=== PATIENT | female | born 1940 | race Caucasian/White ===

== ENCOUNTER → 2017-01-20 | Outpatient (CLI) | payer BC ==
[~2017-01-20] MED LIST: ASPI-391 PO; ASPI81TA28 PO; CALCTAB5 PO; CHOL100010 PO; LEVO50TA6 PO; METO25TA3 PO; [UNRECOGNIZED DRUG - CODE] PO
[2017-01-20 09:36] LABS: MEAN CELL VOLUME 90.1 fL (80-100); MEAN CORPUSCULAR HEMOGLOBIN 31.2 pg (25-34); MEAN CORPUSCULAR HGB CONC 34.7 g/dl (32-36); MEAN PLATELET VOLUME 9.9 fL (7.4-10.4); PLATELET COUNT 206 K/uL (130-400); RED BLOOD COUNT 4.77 M/uL (4.2-5.4); WHITE BLOOD COUNT 3.88 K/uL (4.8-10.8)
[2017-01-20 09:56] LABS: ALT/SGPT 22 U/L (12-78); AST/SGOT 20 U/L (15-37); BLOOD UREA NITROGEN 13 mg/dl (7-18); BUN/CREATININE RATIO 16.2 (10-20); CARBON DIOXIDE 31 mmol/L (21-32); CHLORIDE 98 mmol/L (98-107); CREATININE 0.82 mg/dl (0.60-1.20); GLUCOSE 95 mg/dl (70-99); MAGNESIUM 2.1 mg/dl (1.8-2.4); POTASSIUM 4.1 mmol/L (3.5-5.1); SODIUM 133 mmol/L (136-145)
[2017-01-20 10:08] LABS: ALB/GLOB RATIO 1.1 (0.9-2); ALKALINE PHOSPHATASE 70 U/L (45-117)
[2017-01-20 10:16] LABS: CALCIUM 9.3 mg/dl (8.5-10.1)
== END | disposition home or self-care (01) ==
LOC: C.LABFOXMH 09:18
PROVIDERS: ATTEND Nurse Practitioner Family
DX: I48.91 Unspecified atrial fibrillation (principal); Z51.81 Encounter for therapeutic drug level monitoring; E83.42 Hypomagnesemia; E03.9 Hypothyroidism, unspecified

== ENCOUNTER → 2017-04-05 | Outpatient (CLI) | payer BC ==
--- NOTE | 2017-04-06 13:53 | MAMMOGRAPHY REPORT ---
BILATERAL DIGITAL SCREENING MAMMOGRAM TOMOSYNTHESIS WITH CAD: 04/05/2017 CLINICAL HISTORY: Routine screening. Patient has no complaints. TECHNIQUE: Breast tomosynthesis in addition to standard 2D mammography was performed. Current study was also evaluated with a Computer Aided Detection (CAD) system. COMPARISON: Comparison is made to exams dated: 12/25/2015 mammogram, 12/18/2015 mammogram, 12/16/2014 ma mmogram, 04/15/2014 mammogram, 10/16/2013 mammogram, and 10/12/2013 mammogram - [facility]ter. BREAST COMPOSITION: There are scattered areas of fibroglandular density in both breasts. FINDINGS: There is a stable 9 mm lobular mass with associated biopsy marker in the 12:00 anterior rig ht breast, that appears similar in size dating back to at least 04/10/2010, therefore likely benign. There are scattered benign-appearing calcifications bilaterally. No suspicious spiculated or irregu lar mass, architectural distortion or cluster of suspicious microcalcifications is seen. IMPRESSION: ACR BI-RADS CATEGORY 1: NEGATIVE There is no mammographic evidence of malignancy. A 1 year screening mammogram is recommended. The pa tient will receive written notification of the results. Approximately 10% of breast cancers are not detected with mammography. A negative mammographic report should not delay biopsy if a clinically suggestive mass is present. Morena Chavis M.D. ay/:04/05/2017 16:02:40 Linux Systems Engineer: Ann-Marie DANIEL(Philippe)(Fatimah)([place]), [facility] letter sent: Normal 1/2 BI-RADS Code: ACR BI-RADS Category 1: Negative
== END | disposition home or self-care (01) ==
LOC: C.MAMM 12:56
PROVIDERS: ATTEND Obstetrics & Gynecology
DX: Z12.31 Encounter for screening mammogram for malignant neoplasm of breast (principal)

== ENCOUNTER → 2018-02-01 | Outpatient (CLI) | payer BC ==
[~2018-02-01] MED LIST changes: +METO25TA4 PO
[2018-02-01 09:10] LABS: ALBUMIN 3.2 gm/dl (3.4-5.0); ALT/SGPT 19 U/L (12-78); AST/SGOT 21 U/L (15-37); BLOOD UREA NITROGEN 11 mg/dl (7-18); CALCIUM 8.2 mg/dl (8.5-10.1); CARBON DIOXIDE 29 mmol/L (21-32); CREATININE 0.82 mg/dl (0.60-1.20); GLUCOSE 89 mg/dl (70-99); POTASSIUM 4.2 mmol/L (3.5-5.1); SODIUM 134 mmol/L (136-145)
[2018-02-01 09:20] LABS: ALKALINE PHOSPHATASE 44 U/L (45-117); TOTAL PROTEIN 6.5 gm/dl (6.4-8.2)
[2018-02-01 12:01] LABS: HEMATOCRIT 37.9 % (37-47); HEMOGLOBIN 13.2 g/dL (12.0-16.0); MEAN CELL VOLUME 87.5 fL (80-100); MEAN CORPUSCULAR HEMOGLOBIN 30.5 pg (25-34); MEAN CORPUSCULAR HGB CONC 34.8 g/dl (32-36); MEAN PLATELET VOLUME 9.3 fL (7.4-10.4); PLATELET COUNT 156 K/uL (130-400); RED CELL DISTRIBUTION WIDTH SD 41.8 fL (36.4-46.3); WHITE BLOOD COUNT 4.55 K/uL (4.8-10.8)
== END | disposition home or self-care (01) ==
LOC: C.LABFOXMH 08:25
PROVIDERS: ATTEND Nurse Practitioner Family
DX: E03.9 Hypothyroidism, unspecified (principal); I48.91 Unspecified atrial fibrillation

== ENCOUNTER 2021-05-03 18:42 | Inpatient (IN) ==
--- NOTE | 2021-05-03 19:39 | Emergency Department Note ---
History of Present Illness General Chief complaint: Fall Stated complaint: FELL AND HURT RIGHT HIP/UPPER THIGH Time Seen by Provider: 05/03/21 19:14 History of Present Illness Provider complaint: Fall right hip pain Onset (ago): hour(s) 3 Location: lower extremity and right Radiation: non-radiation Severity: moderate Pain Consistency: + constant Maximum Pain Intensity: 8 Current Pain Intensity: 8 Quality: + aching Relieved By: + immobilization Exacerbated By: + movement Associated symptoms: no chest pain, no cough, no fever/chills, no headaches, no nausea/vomiting, no shortness of breath or no weakness 81-year-old female presents emergency department for right hip pain. Patient states that approximately 4:30 PM she tripped and fell and landed on her right hip. Patient denies hitting her head. Patient is on Xarelto. She states it hurts to walk and was having difficulty standing. Home Medications Medication Instructions Recorded Confirmed Type levothyroxine 50 mcg tablet 50 mcg PO DAILY 04/02/19 05/03/21 History magnesium oxide 400 mg PO DAILY cap 04/02/19 05/03/21 History potassium chloride 10 mEq 10 meq PO DAILY 04/02/19 05/03/21 History tablet,extended release escitalopram oxalate 5 mg tablet 7.5 mg PO DAILY 04/17/19 05/03/21 History (Lexapro) rivaroxaban 20 mg tablet (Xarelto) 20 mg PO DAILY 04/17/19 05/03/21 History metoprolol succinate 25 mg 25 mg PO DAILY tab 05/12/20 05/03/21 History tablet,extended release 24 hr calcium carbonate 500 mg calcium 500 mg PO DAILY 05/03/21 05/03/21 History (1,250 mg) tablet (Calcium 500) psyllium 1 packet PO DAILY 05/03/21 05/03/21 History Allergies Allergy/AdvReac Type Severity Reaction Status Date / Time codeine AdvReac Severe NAUSEA Verified 05/03/21 19:18 Past Med/Surg History Medical History Abnormal mammogram Anticoagulant long-term use Diverticulitis Dysphagia PAC (premature atrial contraction) Paroxysmal atrial fibrillation Paroxysmal atrial tachycardia Senile atrophic vaginitis Vulvar ulceration Surgical History H/O bilateral cataract extraction H/O colonoscopy H/O hemorrhoidectomy H/O right hemicolectomy Hx of appendectomy Hx of bilateral salpingo-oophorectomy S/P partial colectomy S/P tonsillectomy Family History Mother Colon cancer Cardiac disorder Father Cardiac disorder Sister Ovarian cancer Denies family history of Breast cancer Social History Smoking Status: Never smoker Hx Alcohol Use: No Hx Substance Use: No marital status: current occupational status: retired Feels Safe at Home: Yes Childhood Exposure to Second-Hand Smoke: No Review of Systems A total of 10 systems reviewed and were otherwise negative Physical Exam Vital Signs Vital Signs - 24 hr 05/03/21 18:55 05/03/21 21:00 05/03/21 21:30 Temperature 36.4 C L Temperature Source Oral Pulse Rate 72 70 75 Respiratory Rate 18 18 20 Respiratory Effort / Characteristics Non-Labored Respiratory Depth Normal Blood Pressure 148/93 H 155/88 H 148/84 H Blood Pressure Mean 111 110 105 Blood Pressure Position Sitting Pulse Oximetry 94 97 97 Oxygen Delivery Method Room Air Sepsis Recent Fever Within 48 Hours No Sepsis New/Unexplained Change in Mental Status N/A Sepsis Action Taken by Nursing No Action Required 05/03/21 22:00 05/03/21 22:30 Temperature Temperature Source Pulse Rate 73 71 Respiratory Rate 20 22 Respiratory Effort / Characteristics Respiratory Depth Blood Pressure 149/84 H 120/102 H Blood Pressure Mean 105 108 Blood Pressure Position Pulse Oximetry 96 96 Oxygen Delivery Method Sepsis Recent Fever Within 48 Hours Sepsis New/Unexplained Change in Mental Status Sepsis Action Taken by Nursing Physical Exam GENERAL: She is oriented to person, place, and time. She appears well-developed and well-nourished. She does not appear distressed. HENT: Exam performed. -Head: Normocephalic and atraumatic. -Right Ear: External ear normal. No mastoid tenderness. -Left Ear: External ear normal. No mastoid tenderness. -Mouth/Throat: The oropharynx is clear and moist. No trismus in the jaw. No dental abscesses or uvula swelling. No oropharyngeal exudate or tonsillar abscesses. EYES: Conjunctivae and EOM are normal. Pupils are equal, round, and reactive to light. Right eye exhibits no discharge. Left eye exhibits no discharge. No scleral icterus. NECK: Normal range of motion. Neck supple. No JVD present. No spinous process tenderness present. No carotid bruit present. No rigidity. No tracheal deviation and normal range of motion present. No Brudzinski's sign and no Kernig's sign noted. CV: Normal rate, regular rhythm, normal heart sounds and intact distal pulses. There is no peripheral edema. Palpable radial pulses bue. PULM/CHEST: Effort normal and breath sounds normal. No respiratory distress. No stridor. She has no wheezes. She has no rales. -Chest Wall: She exhibits no tenderness. ABD: The abdomen is soft. Bowel sounds are normal. She has no distension. No mass is present. There is no tenderness. There is no rebound, no guarding, no Noriega's sign and no tenderness at McBurney's point. Rovsig negative MUSC/SKEL: Pelvis stable. Pain on palpation of the right hip. Palpable DP and PT pulses bilateral lower extremities. LYMPH: No cervical adenopathy. NEURO: She is alert and oriented to person, place, and time. She has normal strength. No cranial nerve deficit or sensory deficit. Coordination and gait normal. GCS eye subscore is 4. GCS verbal subscore is 5. GCS motor subscore is 6. Cerebellar tests wnl. SKIN: Skin is warm and dry. She is not diaphoretic. PSYCH: She has a normal mood and affect. Behavior is normal. Judgment and thought content normal. Course Course 191: The patient was evaluated in room A3. A complete history and physical exam was performed Cardiac monitoring: An order was placed for continuous cardiac monitoring. The monitor shows a rate of 70 with sinus rhythm 2015: Vital signs stable. X-ray does show hip fracture. Patient will be admitted to the medicine service Dr. Nuzhat Koch. Patient is requesting Dr. Dioni Koch orthopedics to be her orthopedist. Patient is adamant that she not hit her head and is not having headache. Administered Medications Discontinued Medications Acetaminophen (Ofirmev) 1,000 mg in 100 mls @ 400 mls/hr IV NOW STA Stop: 05/03/21 22:17 Last Admin: 05/03/21 22:16 Dose: 400 mls/hr Documented by: [id number] Medical Decision Making Laboratory Data Result diagrams: 05/03/21 20:16 05/03/21 20:16 Lab Results 05/03/21 05/03/21 05/03/21 Range/Units 20:15 20:15 20:15 WBC (4.8-10.8) K/uL RBC (4.2-5.4) M/uL Hgb (12.0-16.0) g/dL Hct (37-47) % MCV (80-100) fL MCH (25-34) pg MCHC (32-36) g/dL RDW Std Deviation (36.4-46.3) fL RDW Coeff of Bettye (11.5-14.5) % Plt Count (130-400) K/uL MPV (7.4-10.4) fL Immature Gran % (Auto) % Neut % (Auto) % Lymph % (Auto) % Powell % (Auto) % Eos % (Auto) % Baso % (Auto) % Neut # (Auto) (1.4-6.5) K/uL Lymph # (Auto) (1.2-3.4) K/uL Powell # (Auto) (0.11-0.59) K/uL Eos # (Auto) (0-0.5) K/uL Baso # (Auto) (0-0.2) K/uL Immature Gran # (Auto) (0.00-0.02) K/uL PT (9.0-12.0) Seconds INR (0.9-1.1) APTT (21.0-31.0) Seconds PTT Ratio Sodium (136-145) mmol/L Potassium (3.5-5.1) mmol/L Chloride (98-107) mmol/L Carbon Dioxide (21-32) mmol/L Anion Gap (3-11) BUN (7-18) mg/dl Creatinine (0.6-1.2) mg/dl Est Cr Clr Drug Dosing Est GFR ( Amer) ml/min Est GFR (Non-Af Amer) ml/min BUN/Creatinine Ratio (10-20) Glucose (70-99) mg/dl Calcium (8.5-10.1) mg/dl Total Bilirubin (0.2-1) mg/dl AST (15-37) U/L ALT (12-78) U/L Alkaline Phosphatase (45-117) U/L Total Protein (6.4-8.2) gm/dl Albumin (3.4-5.0) gm/dl Globulin (2.5-4.0) gm/dl Albumin/Globulin Ratio (0.9-2) Urine Color Yellow Urine Appearance Clear (Clear) Urine pH 6.5 (4.5-7.5) Ur Specific [place] 1.013 (1.000-1.030) Urine Protein Negative (Negative) Urine Glucose (UA) Negative (Negative) Urine Ketones Negative (Negative) Urine Blood Negative (Negative) Urine Nitrite Negative (Negative) Urine Bilirubin Negative (Negative) Urine Urobilinogen Negative (Negative) Ur Leukocyte Esterase Negative (Negative) COVID-19 Eval Order Covid19 at [facility] SARS-CoV-2 (PCR) NEGATIVE (Negative) Blood Type Antibody Screen 05/03/21 05/03/21 05/03/21 Range/Units 20:16 20:16 20:16 WBC 5.27 (4.8-10.8) K/uL RBC 4.40 (4.2-5.4) M/uL Hgb 13.6 (12.0-16.0) g/dL Hct 38.7 (37-47) % MCV 88.0 (80-100) fL MCH 30.9 (25-34) pg MCHC 35.1 (32-36) g/dL RDW Std Deviation 41.7 (36.4-46.3) fL RDW Coeff of Bettye 12.9 (11.5-14.5) % Plt Count 176 (130-400) K/uL MPV 9.7 (7.4-10.4) fL Immature Gran % (Auto) 0.2 % Neut % (Auto) 66.7 % Lymph % (Auto) 23.1 % Powell % (Auto) 8.9 % Eos % (Auto) 0.9 % Baso % (Auto) 0.2 % Neut # (Auto) 3.51 (1.4-6.5) K/uL Lymph # (Auto) 1.22 (1.2-3.4) K/uL Powell # (Auto) 0.47 (0.11-0.59) K/uL Eos # (Auto) 0.05 (0-0.5) K/uL Baso # (Auto) 0.01 (0-0.2) K/uL Immature Gran # (Auto) 0.01 (0.00-0.02) K/uL PT 12.7 H (9.0-12.0) Seconds INR 1.3 H (0.9-1.1) APTT 35.0 H (21.0-31.0) Seconds PTT Ratio 1.3 Sodium (136-145) mmol/L Potassium (3.5-5.1) mmol/L Chloride (98-107) mmol/L Carbon Dioxide (21-32) mmol/L Anion Gap (3-11) BUN (7-18) mg/dl Creatinine (0.6-1.2) mg/dl Est Cr Clr Drug Dosing Est GFR ( Amer) ml/min Est GFR (Non-Af Amer) ml/min BUN/Creatinine Ratio (10-20) Glucose (70-99) mg/dl Calcium (8.5-10.1) mg/dl Total Bilirubin (0.2-1) mg/dl AST (15-37) U/L ALT (12-78) U/L Alkaline Phosphatase (45-117) U/L Total Protein (6.4-8.2) gm/dl Albumin (3.4-5.0) gm/dl Globulin (2.5-4.0) gm/dl Albumin/Globulin Ratio (0.9-2) Urine Color Urine Appearance (Clear) Urine pH (4.5-7.5) Ur Specific [place] (1.000-1.030) Urine Protein (Negative) Urine Glucose (UA) (Negative) Urine Ketones (Negative) Urine Blood (Negative) Urine Nitrite (Negative) Urine Bilirubin (Negative) Urine Urobilinogen (Negative) Ur Leukocyte Esterase (Negative) COVID-19 Eval Order SARS-CoV-2 (PCR) (Negative) Blood Type AB Positive Antibody Screen NEGATIVE 05/03/21 Range/Units 20:16 WBC (4.8-10.8) K/uL RBC (4.2-5.4) M/uL Hgb (12.0-16.0) g/dL Hct (37-47) % MCV (80-100) fL MCH (25-34) pg MCHC (32-36) g/dL RDW Std Deviation (36.4-46.3) fL RDW Coeff of Bettye (11.5-14.5) % Plt Count (130-400) K/uL MPV (7.4-10.4) fL Immature Gran % (Auto) % Neut % (Auto) % Lymph % (Auto) % Powell % (Auto) % Eos % (Auto) % Baso % (Auto) % Neut # (Auto) (1.4-6.5) K/uL Lymph # (Auto) (1.2-3.4) K/uL Powell # (Auto) (0.11-0.59) K/uL Eos # (Auto) (0-0.5) K/uL Baso # (Auto) (0-0.2) K/uL Immature Gran # (Auto) (0.00-0.02) K/uL PT (9.0-12.0) Seconds INR (0.9-1.1) APTT (21.0-31.0) Seconds PTT Ratio Sodium 127 L (136-145) mmol/L Potassium 4.3 (3.5-5.1) mmol/L Chloride 95 L (98-107) mmol/L Carbon Dioxide 24 (21-32) mmol/L Anion Gap 7.0 (3-11) BUN 17 (7-18) mg/dl Creatinine 0.75 (0.6-1.2) mg/dl Est Cr Clr Drug Dosing Not Reportable Est GFR ( Amer) 87.9 ml/min Est GFR (Non-Af Amer) 75.8 ml/min BUN/Creatinine Ratio 22.7 H (10-20) Glucose 109 H (70-99) mg/dl Calcium 9.3 (8.5-10.1) mg/dl Total Bilirubin 0.5 (0.2-1) mg/dl AST 22 (15-37) U/L ALT 22 (12-78) U/L Alkaline Phosphatase 55 (45-117) U/L Total Protein 7.5 (6.4-8.2) gm/dl Albumin 3.8 (3.4-5.0) gm/dl Globulin 3.7 (2.5-4.0) gm/dl Albumin/Globulin Ratio 1.0 (0.9-2) Urine Color Urine Appearance (Clear) Urine pH (4.5-7.5) Ur Specific [place] (1.000-1.030) Urine Protein (Negative) Urine Glucose (UA) (Negative) Urine Ketones (Negative) Urine Blood (Negative) Urine Nitrite (Negative) Urine Bilirubin (Negative) Urine Urobilinogen (Negative) Ur Leukocyte Esterase (Negative) COVID-19 Eval Order SARS-CoV-2 (PCR) (Negative) Blood Type Antibody Screen Imaging Data My Impression: Chest x-ray negative. Airway clear. No pneumothorax. No consolidation. No cardiomegaly or cephalization.. No free air under the diaphragm. No fractures of the skeletal structures. Radiologist's Impression: Femur X-Ray 05/03/21 19:26 XR hip RT 2V w pelvis, XR femur RT 2V routine CLINICAL HISTORY: fall R hip pain COMPARISON STUDY: None. FINDINGS: There is an impacted subcapital right femoral neck fracture. No dislocation. The visualized pelvic bones, left hip, and distal right femur are intact. IMPRESSION: Impacted subcapital right femoral neck fracture. ACT 112: Negative or not required by law. Electronically signed by: Deondre Grullon M.D. 05/03/2021 7:59 PM Hip/Pelvis X-Ray 05/03/21 19:26 XR hip RT 2V w pelvis, XR femur RT 2V routine CLINICAL HISTORY: fall R hip pain COMPARISON STUDY: None. FINDINGS: There is an impacted subcapital right femoral neck fracture. No dislocation. The visualized pelvic bones, left hip, and distal right femur are intact. IMPRESSION: Impacted subcapital right femoral neck fracture. ACT 112: Negative or not required by law. Electronically signed by: Deondre Grullon M.D. 05/03/2021 7:59 PM ECG Data Indication: + other (preop) Rate (beats per minute): 72 Rhythm: + normal sinus ECG Intervals/blocks: + Normal QRS, + Normal NV and + Normal QT-c ECG ST segments: + Normal ST segments MDM Narrative Vital signs stable. X-ray does show hip fracture. Patient will be admitted to the medicine service Dr. Nuzhat Koch. Patient is requesting Dr. Dioni Koch orthopedics to be her orthopedist. Patient is adamant that she not hit her head and is not having headache. Impression & Plan Closed fracture of neck of right femur Discharge Plan Visit Data Chief Complaint: Fall Stated Complaint: FELL AND HURT RIGHT HIP/UPPER THIGH ED Provider: Randal Moraes Discharge Problem: Closed fracture of neck of right femur Patient Disposition: Admitted As Inpatient Forms Stand Alone Forms: My [facility] Prescriptions Prescriptions: No Action levothyroxine 50 mcg tablet 50 mcg PO DAILY RF: 0 magnesium oxide 400 mg magnesium capsule 400 mg PO DAILY RF: 0 potassium chloride 10 mEq tablet extended release 10 meq PO DAILY RF: 0 escitalopram oxalate [Lexapro] 5 mg tablet 7.5 mg PO DAILY RF: 0 metoprolol succinate 25 mg tablet extended release 24 hr 25 mg PO DAILY RF: 0 Xarelto 20 mg tablet 20 mg PO DAILY RF: 0 Metamucil Packet 1 packet PO DAILY RF: 0 calcium carbonate [Calcium 500] 500 mg calcium (1,250 mg) Tablet 500 mg PO DAILY RF: 0 Referrals Referrals: Alexander Tucker [Primary Care Provider] - Discharge Problem: Closed fracture of neck of right femur Qualifiers: Encounter type: initial encounter Qualified Code(s): S72.001A - Fracture of unspecified part of neck of right femur, initial encounter for closed fracture
--- NOTE | 2021-05-03 20:00 | XRay Report ---
XR hip RT 2V w pelvis, XR femur RT 2V routine CLINICAL HISTORY: fall R hip pain COMPARISON STUDY: None. FINDINGS: There is an impacted subcapital right femoral neck fracture. No dislocation. The visualized pelvic bones, left hip, and distal right femur are intact. IMPRESSION: Impacted subcapital right femoral neck fracture. ACT 112: Negative or not required by law. Electronically signed by: Deondre Grullon M.D. 05/03/2021 7:59 PM
[2021-05-03] MEDS ORDERED: MoRPHine SULFATE 4 MG/ML 1 ML CARP\\VIAL IV PRN (20:05)
[2021-05-03] MEDS ORDERED: MoRPHine SULFATE 2 MG/ML CARP IV PRN (20:05)
[2021-05-03] MEDS ORDERED: SODIUM CHLORIDE 0.9% 1000ML 1,000 ML IV SCH (20:15)
[2021-05-03 20:29] LABS: Basophils # (auto) 0.01 K/uL (0-0.2); Basophils % (auto) 0.2 %; Eosinophils # (auto) 0.05 K/uL (0-0.5); Eosinophils % (auto) 0.9 %; Hematocrit (blood only) 38.7 % (37-47); Hemoglobin 13.6 g/dL (12.0-16.0); Immature Granulocytes # (auto) 0.01 K/uL (0.00-0.02); Immature Granulocytes % (auto) 0.2 %; Lymphocytes # (auto) 1.22 K/uL (1.2-3.4); Lymphocytes % (auto) 23.1 %; Mean Corpuscular Hemoglobin 30.9 pg (25-34); Mean Corpuscular Hgb Conc 35.1 g/dL (32-36); Mean Platelet Volume 9.7 fL (7.4-10.4); Monocytes # (auto) 0.47 K/uL (0.11-0.59); Monocytes % (auto) 8.9 %; Neutrophils # (auto) 3.51 K/uL (1.4-6.5); Neutrophils % (auto) 66.7 %; Platelet Count 176 K/uL (130-400); RDW Coefficient of Variation 12.9 % (11.5-14.5); RDW Standard Deviation 41.7 fL (36.4-46.3); White Blood Count 5.27 K/uL (4.8-10.8)
[2021-05-03 20:33] LABS: Appearance Urine Clear (Clear); Bilirubin Urine Negative (Negative); Blood Urine Negative (Negative); Color Urine Yellow; Glucose Urine UA Negative (Negative); Ketones Urine Negative (Negative); Leukocyte Esterase Urine Negative (Negative); Nitrite Urine Negative (Negative); Protein Urine Negative (Negative); Specific Gravity Urine 1.013 (1.000-1.030); Urobilinogen Urine Negative (Negative); pH Urine 6.5 (4.5-7.5)
[2021-05-03 20:36] LABS: INR 1.3 (0.9-1.1); Partial Thromboplastin Ratio 1.3; Prothrombin Time 12.7 Seconds (9.0-12.0)
--- NOTE | 2021-05-03 20:46 | History & Physical Report ---
Date of Service May 03, 2021 Assessment & Plan (1) Closed femur fracture: Plan: Right impacted sub-capital right femoral neck fracture without dislocation - Pain control tiered approach- Tylenol, Oxy IR, Hydromorphone PRN- Patient gets nauseated with coedine - Has had Anesthesia before without any difficulties reported - NO hematoma, NV/CV status intact - Last dose of Xeralto was [id number] at ~1700 - SCD's, GARRY to left leg - Orthopaedics consulted (2) Anticoagulant long-term use: Plan: For PAF - As above for last dose - Hold Xeralto (3) Paroxysmal atrial fibrillation: Plan: Currently in NSR - Telemetry until surgical plan developed - Continue Metoprolol (4) Hypomagnesemia: Plan: Hold oral mag - can replete with IV mag if needed (5) Hypothyroidism: Plan: Continue Synthroid at 50mcg TSH in am (6) Mitral regurgitation: Plan: asymptomatic grade I systolic murmur - Continue BB (7) Hyponatremia: Plan: Serum osmo and urine osmo sent- she is normally on the lower side - Spec grav- 1.0103 - LR overnight - asymptomatic - Likely slight hypovolemia with low chloride as well- ? related to lexapro - TSH pending - Glucose normal History of Present Illness Chief Complaint: Hip fracture Primary Care Provider: Alexander Tucker 81 YOF with past medical history of: Paroxysmal Afib (on Xaralto), hypom agnesemia, PACs, Mitral Regurgitation. Patient comes to the EMD today for evaluation of her right hip. The patient was out completing a hike today where she stepped off the road onto an un-level area causing her to lose her balance and fall onto her right hip. She had immediate pain and inability to bear weight. On the way to the hospital she did implement ice and Tylenol. In the EMD the patient had Femur and Hip and pelvis x-rays performed. This revealed a subcapital right femoral neck fracture without dislocation and/or pelvic involvement. The patient pain is currently controlled. She will be admitted for pain control, holding of her Xarelto until evaluated by Orthopaedics, will place on telemetry to monitor for afib until surgical plan/evaluation is developed. In general this is a healthy female with minimal medical history. She reports that she walks 2 miles per day without any cardio-pulmonary problems. She is followed by Dr. Riley for cardiology her original diagnosis of Afib was in 2010. Managed with Metoprolol. Patient has been vaccinated for COVID 19 and her COVID test on admission is NEGATIVE. Revised Cardiac Risk index: 0.4 %, Johnson risk probability for perioperative [place] or Cardiac Arrest: 0.21% Allergies Allergy/AdvReac Type Severity Reaction Status Date / Time codeine AdvReac Severe NAUSEA Verified 05/03/21 19:18 Home Medications Medication Instructions Recorded Confirmed Type levothyroxine 50 mcg tablet 50 mcg PO DAILY 04/02/19 05/03/21 History magnesium oxide 400 mg PO DAILY cap 04/02/19 05/03/21 History potassium chloride 10 mEq 10 meq PO DAILY 04/02/19 05/03/21 History tablet,extended release escitalopram oxalate 5 mg tablet 7.5 mg PO DAILY 04/17/19 05/03/21 History (Lexapro) rivaroxaban 20 mg tablet (Xarelto) 20 mg PO DAILY 04/17/19 05/03/21 History metoprolol succinate 25 mg 25 mg PO DAILY tab 05/12/20 05/03/21 History tablet,extended release 24 hr calcium carbonate 500 mg calcium 500 mg PO DAILY 05/03/21 05/03/21 History (1,250 mg) tablet (Calcium 500) psyllium 1 packet PO DAILY 05/03/21 05/03/21 History Past Med/Surg History Medical History Abnormal mammogram Anticoagulant long-term use Diverticulitis Dysphagia PAC (premature atrial contraction) Paroxysmal atrial fibrillation Paroxysmal atrial tachycardia Senile atrophic vaginitis Vulvar ulceration Surgical History H/O bilateral cataract extraction H/O colonoscopy H/O hemorrhoidectomy H/O right hemicolectomy Hx of appendectomy Hx of bilateral salpingo-oophorectomy S/P partial colectomy S/P tonsillectomy Family History Mother Colon cancer Cardiac disorder Father Cardiac disorder Sister Ovarian cancer Denies family history of Breast cancer Social History Smoking Status: Never smoker Second Hand Exposure: No; Do You Dip or Chew Tobacco: No; Tobacco Cessation Education Requested by Patient: No Hx Alcohol Use: No Hx Substance Use: No Preferred Language: German Communication Ability: Effective Forging Roll Operator Required: Yes Beliefs That Will Affect Care: None marital status: Current Living Situation: Spouse Current Living Situation Comment: Lives w/ in independent living at [facility] current occupational status: retired Other Information That Helps Us Care for You: No Feels Safe at Home: Yes Safety Concerns: Feels Safe At This Time Childhood Exposure to Second-Hand Smoke: No Assistive Devices: Glasses Review of Systems Review of Systems: REVIEW OF SYSTEMS: Constitutional: No fever, sweats or chills Eyes: No diplopia, no worsening or blurred vision ENT: normal hearing, no trouble swallowing Respiratory: No cough, sputum, dyspnea at rest or on exertion Cardiovascular: No chest pain, tightness or palpitations Abdomen: No pain, nausea, vomiting, diarrhea or constipation Musculoskeletal: (+) right hip joint pain, calf pain, swelling Neurologic: No weakness, numbness/tingling, or balance problems Psychiatric: (+) depression Skin: No rash or itch Physical Exam Physical Exam: PHYSICAL EXAM: General: awake, alert, no apparent distress Head: Normocephalic, atraumatic ENT: PERRL, EOMI, no pharyngeal exudate, mucous membranes moist Neuro: AAO x 3, speech clear and appropriate, strength intact bilaterally 5/5, sensation intact and equal all extremities and dermatomes, no pronator drift Chest: equal rise and fall of the chest, no accessory muscle use, no heaves or thrills, Clear to auscultation, on room air, Cardiac: Regular rate and rhythm, telemetry reviewed- NSR no ectopy, skin warm dry, cap refill <3 seconds, peripheral pulses +2 no JVD, Grade I systolic murmur, no edema GI: NABS x 4 quadrants, soft, nontender to palpation, no rebound, guarding or tenderness : Pan to gravity, no pain, no CVA tenderness, MSK: Right hip pain- no hematoma, no shortening or rotation. NV/CV intact bilaterally, warm with 2+pulses Psych: Normal mood and affect Skin: no rash or erythema Results & Data Results & Data ([facility]) Vital Signs (Past 12 Hours) Vital Signs Temp Pulse Resp BP Pulse Ox 05/03/21 18:55 36.4 C L 72 18 148/93 H 94 Laboratory Results Abnormal Labs 05/03/21 05/03/21 20:16 20:16 PT 12.7 H INR 1.3 H APTT 35.0 H Sodium 127 L Chloride 95 L BUN/Creatinine Ratio 22.7 H Glucose 109 H Diagnostic Findings Femur X-Ray 05/03/21 19:26 XR hip RT 2V w pelvis, XR femur RT 2V routine CLINICAL HISTORY: fall R hip pain COMPARISON STUDY: None. FINDINGS: There is an impacted subcapital right femoral neck fracture. No dislocation. The visualized pelvic bones, left hip, and distal right femur are intact. IMPRESSION: Impacted subcapital right femoral neck fracture. ACT 112: Negative or not required by law. Electronically signed by: Deondre Grullon M.D. 05/03/2021 7:59 PM Hip/Pelvis X-Ray 05/03/21 19:26 XR hip RT 2V w pelvis, XR femur RT 2V routine CLINICAL HISTORY: fall R hip pain COMPARISON STUDY: None. FINDINGS: There is an impacted subcapital right femoral neck fracture. No dislocation. The visualized pelvic bones, left hip, and distal right femur are intact. IMPRESSION: Impacted subcapital right femoral neck fracture. ACT 112: Negative or not required by law. Electronically signed by: Deondre Grullon M.D. 05/03/2021 7:59 PM Medications Administered Home Medications levothyroxine 50 mcg tablet 50 mcg PO DAILY 04/02/19 [History Confirmed 05/03/21] magnesium oxide 400 mg PO DAILY cap 04/02/19 [History Confirmed 05/03/21] potassium chloride 10 mEq tablet,extended release 10 meq PO DAILY 04/02/19 [History Confirmed 05/03/21] escitalopram oxalate 5 mg tablet (Lexapro) 7.5 mg PO DAILY 04/17/19 [History Confirmed 05/03/21] rivaroxaban 20 mg tablet (Xarelto) 20 mg PO DAILY 04/17/19 [History Confirmed 05/03/21] metoprolol succinate 25 mg tablet,extended release 24 hr 25 mg PO DAILY tab 05/12/20 [History Confirmed 05/03/21] calcium carbonate 500 mg calcium (1,250 mg) tablet (Calcium 500) 500 mg PO DAILY 05/03/21 [History Confirmed 05/03/21] psyllium 1 packet PO DAILY 05/03/21 [History Confirmed 05/03/21] Active Medications Sodium Chloride (Nss 1000ml) 1,000 mls @ 75 mls/hr IV .[id number] GUILHERME Stop: 05/04/21 09:34 Lactated Ringer's (Lr) 1,000 mls @ 80 mls/hr IV .[id number] GUILHERME Stop: 06/02/21 20:59 Morphine Sulfate (Morphine Sulfate 2 Mg/Ml Carp) 2 mg IV Q2H PRN PRN Reason: Moderate Pain (Rating 3,4,5,6) Stop: 05/17/21 20:04 Morphine Sulfate (Morphine Sulfate 4 Mg/Ml 1 Ml Carp\Vial) 4 mg IV Q4H PRN PRN Reason: Severe Pain (Rating 7,8,9,10) Stop: 05/17/21 20:04 ECG Additional Comments: Incomplete right bundle branch block Left anterior fascicular block Nonspecific T wave abnormality- compared to 2014 Code Status & VTE Plan Code Status CODE: FULL VTE: SCD's, Heparin 5000 subq q12 Supervising Physician Co-Signing Physician Notes Patient seen and examined, chart reviewed, case discussed with ARABELLA Rothman and I agree with his assessment and plan as documented above. In brief, patient is a 81yo female with history of PAF on Xarelto anticoagulation presenting after ground-level fall resulting in right sub-capital femoral neck fracture. Pain is well controlled at present. Exam is unremarkable. Patient is afebrile, HD stable, NAD No bruising HEENT -MMM, Neck supple Heart - +S1/S2, regular, 2/6 ABRAM across precordium Lungs - CTA anteriorly Abd - +BS, soft, NT/ND Ext - warm, well perfused, NV intact Labs and images reviewed. Significant for INR of 1.3, Ep=405, Cl=95 Assessment/Plan: 81yo female with right subcapital femoral neck fracture following a ground level fall -Pain and nausea control -Hold Xarelto - last dose was 03 May at appx 17:00 -NPO -Ortho consultation appreciated -Remainder of plan as above PG Care Time/CCT Total # of Minutes Spent Total Time Spent with Patient: Total time spent is greater than 50% in coordination of care (as documented) at patient's floor/unit and/or counseling patient: Coding Level of Care Code 31408 Initial Inpt Care Lvl 3 Diagnoses Closed femur fracture S72.90XA Anticoagulant long-term use Z79.01 Paroxysmal atrial fibrillation I48.0 Hypomagnesemia E83.42 Hypothyroidism E03.9 Mitral regurgitation I34.0 Hyponatremia E87.1
[2021-05-03 20:47] LABS: Alanine Aminotransferase 22 U/L (12-78); Albumin Level 3.8 gm/dl (3.4-5.0); Aspartate Aminotransferase 22 U/L (15-37); BUN Creatinine Ratio 22.7 (10-20); Blood Urea Nitrogen 17 mg/dl (7-18); Calcium 9.3 mg/dl (8.5-10.1); Carbon Dioxide 24 mmol/L (21-32); Chloride 95 mmol/L (98-107); Est GFR (African American) 87.9 ml/min; Est GFR (Non-African American) 75.8 ml/min; Glucose 109 mg/dl (70-99); Potassium 4.3 mmol/L (3.5-5.1); Sodium 127 mmol/L (136-145)
[2021-05-03 20:50] LABS: Alkaline Phosphatase 55 U/L (45-117); Bilirubin,Total 0.5 mg/dl (0.2-1); Globulin 3.7 gm/dl (2.5-4.0); Total Protein 7.5 gm/dl (6.4-8.2)
[2021-05-03] MEDS ORDERED: ACETAMINOPHEN 1,000 MG/100 ML VIAL IV STA (22:03)
[2021-05-04] MEDS ORDERED: oxyCODONE HCL IR 5 MG TAB (IMMEDIATE RELEASE) PO PRN (00:55)
[2021-05-04] MEDS ORDERED: NALOXONE HCL 0.4 MG/1 ML VIAL/CARP IV PRN (00:55)
[2021-05-04] MEDS ORDERED: HEPARIN SOD 5,000 UNIT/0.5 ML VIAL SQ SCH (00:55)
[2021-05-04] MEDS ORDERED: ONDANSETRON INJ 2 MG/ML 2 ML VIAL IV PRN (00:55)
[2021-05-04] MEDS ORDERED: HYDROmorphone INJ 0.5 MG/0.5 ML SYR IV PRN (00:55)
[2021-05-04] MEDS ORDERED: MAGNESIUM HYDROXIDE SUSP 30 ML UDC PO PRN (00:55)
[2021-05-04] MEDS ORDERED: bisacodyL 10 MG SUPP PR PRN (00:55)
[2021-05-04] MEDS: LACTATED RINGER'S 1,000 ML IV SCH ×2 (01:12→10:12)
[2021-05-04] MEDS: DOCUSATE SODIUM/SENNA 50/8.6MG TAB PO SCH ×2 (01:52→20:13)
[2021-05-04] MEDS: LEVOTHYROXINE SODIUM 50 MCG TABLET PO SCH (06:05)
[2021-05-04] MEDS: ACETAMINOPHEN 325 MG TAB PO PRN ×2 (06:05→16:51)
[2021-05-04 08:03] LABS: Basophils # (auto) 0.02 K/uL (0-0.2); Basophils % (auto) 0.4 %; Eosinophils # (auto) 0.24 K/uL (0-0.5); Eosinophils % (auto) 4.5 %; Hematocrit (blood only) 35.4 % (37-47); Hemoglobin 12.6 g/dL (12.0-16.0); Lymphocytes # (auto) 1.25 K/uL (1.2-3.4); Lymphocytes % (auto) 23.7 %; Mean Corpuscular Hemoglobin 30.7 pg (25-34); Mean Corpuscular Hgb Conc 35.6 g/dL (32-36); Mean Corpuscular Volume 86.1 fL (80-100); Mean Platelet Volume 10.1 fL (7.4-10.4); Monocytes # (auto) 0.47 K/uL (0.11-0.59); Monocytes % (auto) 8.9 %; Neutrophils % (auto) 62.5 %; Platelet Count 153 K/uL (130-400); RDW Coefficient of Variation 12.7 % (11.5-14.5); RDW Standard Deviation 40.2 fL (36.4-46.3); Red Blood Count 4.11 M/uL (4.2-5.4); White Blood Count 5.28 K/uL (4.8-10.8)
--- NOTE | 2021-05-04 08:06 | XRay Report ---
XR chest 1V portable HISTORY: 81 years-old Female hip fx acute fracture of the right hip COMPARISON: 09/27/2014 TECHNIQUE: Portable supine AP view of the chest FINDINGS: Cardiomediastinal and hilar silhouettes are within normal limits. No pneumothorax, pleural effusion, airspace consolidation or overt pulmonary edema. Degenerative changes of the shoulders. IMPRESSION: No acute process. ACT 112: Negative or not required by law. The above report was generated using voice recognition software. It may contain grammatical, syntax o r spelling errors. Electronically signed by: Julio C Bennett M.D. 05/04/2021 8:05 AM
[2021-05-04 08:37] LABS: BUN Creatinine Ratio 13.4 (10-20); Calcium 8.6 mg/dl (8.5-10.1); Creatinine Clr Calc Pharmacy 62.2 ml/min; Est GFR (African American) 97.4 ml/min; Magnesium 1.9 mg/dl (1.8-2.4); Potassium 3.6 mmol/L (3.5-5.1)
[2021-05-04] MEDS ORDERED: ESCITALOPRAM OXALATE 10 MG TAB PO SCH (09:00)
[2021-05-04] MEDS: POTASSIUM CHLORIDE 10 MEQ TABCR PO SCH (09:19)
[2021-05-04] MEDS: METOPROLOL SUCC 25MG EXT REL TAB PO SCH (09:20)
--- NOTE | 2021-05-04 10:21 | Orthopedic Consultation ---
Date of Service May 04, 2021 Assessment & Plan (1) Closed fracture of neck of right femur: We discussed the diagnosis and treatment plans with her at bedside. We discussed the possibility of a right hip hemiarthroplasty versus cannulated screw fixation. I did recommend a cannulated screw fixation. Unfortunately she is on Xarelto so we cannot do a spinal anesthetic. She is also hyponatremic so we cannot do a general anesthetic. Because of this we will have to wait until tomorrow to proceed with the surgery. I really discussed this with my partner Dr. Koch and he will likely do her procedure tomorrow. She is currently n.p.o. The decision was made for surgery. History of Present Illness Reason for Consultation: Right hip fracture Requesting Physician: . Attending Physician: Daniel Paris DO Patient fell yesterday while getting out of her car. She states that she fell down a short embankment and felt pain in her right hip. She normally ambulates independently. She lives at [facility] with her . She states that she has no major medical problems. Allergies Allergy/AdvReac Type Severity Reaction Status Date / Time codeine AdvReac Severe NAUSEA Verified 05/03/21 19:18 Home Medications Medication Instructions Recorded Confirmed Type levothyroxine 50 mcg tablet 50 mcg PO DAILY 04/02/19 05/03/21 History magnesium oxide 400 mg PO DAILY cap 04/02/19 05/03/21 History potassium chloride 10 mEq 10 meq PO DAILY 04/02/19 05/03/21 History tablet,extended release escitalopram oxalate 5 mg tablet 7.5 mg PO DAILY 04/17/19 05/03/21 History (Lexapro) rivaroxaban 20 mg tablet (Xarelto) 20 mg PO DAILY 04/17/19 05/03/21 History metoprolol succinate 25 mg 25 mg PO DAILY tab 05/12/20 05/03/21 History tablet,extended release 24 hr calcium carbonate 500 mg calcium 500 mg PO DAILY 05/03/21 05/03/21 History (1,250 mg) tablet (Calcium 500) psyllium 1 packet PO DAILY 05/03/21 05/03/21 History Past Med/Surg History Medical History Abnormal mammogram Anticoagulant long-term use Diverticulitis Dysphagia PAC (premature atrial contraction) Paroxysmal atrial fibrillation Paroxysmal atrial tachycardia Senile atrophic vaginitis Vulvar ulceration Surgical History H/O bilateral cataract extraction H/O colonoscopy H/O hemorrhoidectomy H/O right hemicolectomy Hx of appendectomy Hx of bilateral salpingo-oophorectomy S/P partial colectomy S/P tonsillectomy Family History Mother Colon cancer Cardiac disorder Father Cardiac disorder Sister Ovarian cancer Denies family history of Breast cancer Social History Smoking Status: Never smoker Second Hand Exposure: No; Do You Dip or Chew Tobacco: No; Tobacco Cessation Education Requested by Patient: No Hx Alcohol Use: No Hx Substance Use: No Preferred Language: Nicaraguan Communication Ability: Effective Vending Stand Supervisor Required: Yes Beliefs That Will Affect Care: None marital status: Current Living Situation: Spouse Current Living Situation Comment: Lives w/ in independent living at [facility] current occupational status: retired Other Information That Helps Us Care for You: No Feels Safe at Home: Yes Safety Concerns: Feels Safe At This Time Childhood Exposure to Second-Hand Smoke: No Assistive Devices: Glasses Review of Systems All systems reviewed & are unremarkable except as noted in HPI & below. Physical Exam PAIN WITH LOG ROLL OF RIGHT HIP. No rotation deformity . Constitutional WD/WN, vitals as above Eyes PERRL, conjunctivae normal, anicteric sclerae ENMT external ear and nose normal, oropharynx normal Neck trachea midline, no thyromegaly Respiratory normal respiratory effort Cardiovascular RRR, no murmur, no edema Gastrointestinal (Abdomen) normal bowel sounds, soft, nontender, no hepatosplenomegaly Psychiatric A+Ox3, euthymic affect Results & Data Results & Data Laboratory Results . Diagnostic Findings Slight external rotation to the right hip. Minimal to no shortening of the hip. Pain with external/internal motion. PG Care Time/CCT Total # of Minutes Spent Total Time Spent with Patient: Total time spent is greater than 50% in coordination of care (as documented) at patient's floor/unit and/or counseling patient: Coding Level of Care Code 21011 Inpt Consult Level 4 (57 - DECISION FOR SURGERY) Diagnoses Closed fracture of neck of right femur S72.001A Encounter type: initial encounter (1) Closed fracture of neck of right femur Encounter type: initial encounter Qualified Code(s): S72.001A - Fracture of unspecified part of neck of right femur, initial encounter for closed fracture
--- NOTE | 2021-05-04 11:36 | Anesthesiology Consultation ---
Date of Service May 04, 2021 Assessment & Plan (1) Encounter for pre-operative examination: Chart Review Chart Review: Patient NOT seen in Pre Admission Testing Consults Requested medical Additional Notes Pt's hyponatremia is too low to proceed with GA unless the planned procedure is an emergency. (Pt is not a spinal candidate due to xarelto.) Primary team and surgical team notified and plan to reschedule case for tomorrow after sodium is improved. History Surgery Operation Date: 05/04/21 11:30 Proposed Procedures p Right Percutaneous Pinning - Dioni Koch MD Height/Weight Height: 5 ft 5 in Weight: 63.9 kg Allergies Allergy/AdvReac Type Severity Reaction Status Date / Time codeine AdvReac Severe NAUSEA Verified 05/03/21 19:18 Medications Home Medications Medication Instructions Recorded Confirmed Last Taken levothyroxine 50 mcg tablet 50 mcg PO DAILY 04/02/19 05/03/21 Unknown magnesium oxide 400 mg PO DAILY cap 04/02/19 05/03/21 Unknown potassium chloride 10 mEq 10 meq PO DAILY 04/02/19 05/03/21 Unknown tablet,extended release escitalopram oxalate 5 mg tablet 7.5 mg PO DAILY 04/17/19 05/03/21 Unknown (Lexapro) rivaroxaban 20 mg tablet (Xarelto) 20 mg PO DAILY 04/17/19 05/03/21 Unknown metoprolol succinate 25 mg 25 mg PO DAILY tab 05/12/20 05/03/21 Unknown tablet,extended release 24 hr calcium carbonate 500 mg calcium 500 mg PO DAILY 05/03/21 05/03/21 Unknown (1,250 mg) tablet (Calcium 500) psyllium 1 packet PO DAILY 05/03/21 05/03/21 Unknown Active Medications Generic Name Dose Route Start Last Admin Trade Name Freq PRN Reason Stop Dose Admin Acetaminophen 650 mg 05/04/21 00:55 05/04/21 06:05 Acetaminophen 325 Mg Tab PO 06/03/21 00:54 650 mg Q6H PRN Administration Pain & Pre PT Levothyroxine Sodium 50 mcg 05/04/21 06:30 05/04/21 06:05 Levothyroxine Sodium 50 Mcg Tablet PO 06/03/21 06:29 50 mcg DAILYBB GUILHERME Administration Metoprolol Succinate 25 mg 05/04/21 09:00 05/04/21 09:20 Metoprolol Succ 25mg Ext Rel Tab PO 06/03/21 08:59 25 mg DAILY GUILHERME Administration Potassium Chloride 10 meq 05/04/21 09:00 05/04/21 09:19 Potassium Chloride 10 Meq Tabcr PO 06/03/21 08:59 10 meq DAILY GUILHERME Administration Senna/Docusate Sodium 2 tab 05/04/21 00:55 05/04/21 01:52 Docusate Sodium/Senna 50/8.6mg Tab PO 06/03/21 00:54 2 tab HS GUILHERME Administration Past Medical History Medical History Abnormal mammogram Anticoagulant long-term use Diverticulitis Dysphagia PAC (premature atrial contraction) Paroxysmal atrial fibrillation Paroxysmal atrial tachycardia Senile atrophic vaginitis Vulvar ulceration Past Family History Family History Mother Colon cancer Cardiac disorder Father Cardiac disorder Sister Ovarian cancer Denies family history of Breast cancer Past Surgical History Surgical History H/O bilateral cataract extraction H/O colonoscopy H/O hemorrhoidectomy H/O right hemicolectomy Hx of appendectomy Hx of bilateral salpingo-oophorectomy S/P partial colectomy S/P tonsillectomy Social History Smoking Status: Never smoker Do You Dip or Chew Tobacco: No Hx Alcohol Use: No Hx Substance Use: No substance use type: does not use Physical Exam Vital Signs Last Vital Signs Temp 37.1 C 05/04/21 08:00 Pulse 61 05/04/21 08:00 Resp 18 05/04/21 08:00 BP 128/72 05/04/21 08:00 Pulse Ox 94 05/04/21 08:00 Testing Laboratory Results 05/04/21 07:46 05/04/21 07:46 PT 12.7 Seconds (9.0-12.0) H 05/03/21 20:16 INR 1.3 (0.9-1.1) H 05/03/21 20:16 APTT 35.0 Seconds (21.0-31.0) H 05/03/21 20:16 Urine Color Yellow 05/03/21 20:15 Urine Appearance Clear (Clear) 05/03/21 20:15 Urine pH 6.5 (4.5-7.5) 05/03/21 20:15 Ur Specific [place] 1.013 (1.000-1.030) 05/03/21 20:15 Urine Protein Negative (Negative) 05/03/21 20:15 Urine Glucose (UA) Negative (Negative) 05/03/21 20:15 Urine Ketones Negative (Negative) 05/03/21 20:15 Urine Nitrite Negative (Negative) 05/03/21 20:15 Ur Leukocyte Esterase Negative (Negative) 05/03/21 20:15 Blood Type AB Positive 05/03/21 20:16 Antibody Screen NEGATIVE 05/03/21 20:16 Electrocardiogram Date: 05/03/21 Findings: + NSR @ (72) PACs, Incomplete RBBB, LAFB, nonspecific T wave abnormality, when compared with ECG of 09/28/14 nonspecific T wave abnormality, worse in anterolateral leads Chest X-Ray Date: 05/03/21 Findings: + NAD
--- NOTE | 2021-05-04 13:35 | Hospitalist Progress Note ---
Date of Service May 04, 2021 Assessment & Plan (1) Closed femur fracture: Plan: Right impacted sub-capital right femoral neck fracture without dislocation - Pain control tiered approach- Tylenol, Oxy IR, Hydromorphone 0.25mg IV - Has had Anesthesia before without any difficulties reported - NO hematoma, NV/CV status intact - Last dose of Xeralto was [id number] at ~1700 - SCD's, GARRY to left leg - Orthopaedics consulted, plan for pinning right hip tomorrow cannot get spinal anesthesia due to Xarelto dosing need to get sodium up slightly (2) Anticoagulant long-term use: Plan: For PAF - As above for last dose - continue to hold Xarelto (3) Paroxysmal atrial fibrillation: Plan: Currently in NSR - Telemetry until surgical plan developed - Continue Metoprolol (4) Hypomagnesemia: Plan: Hold oral mag - can replete with IV mag if needed (5) Hypothyroidism: Plan: Continue Synthroid at 50mcg TSH in am (6) Mitral regurgitation: Plan: asymptomatic grade I systolic murmur - Continue BB (7) Hyponatremia: Plan: Serum osmo and urine osmo sent- she is normally on the lower side, 130-134 - Spec grav- 1.0103 - asymptomatic - Likely slight hypovolemia with low chloride as well- ? related to lexapro - TSH normal - Glucose normal Na down to 125 today, liberalize sodium in diet, change to NSS, repeat BMP now, try to get up to 130 for surgery tomorrow Admission and Anticipated Discharge Date Admission Date: May 03, 2021 Subjective patient resting comfortably, had Dilaudid 0.25mg IV which helped her sleep discussed with anesthesia and orthopedics, hold on pinning of hip due to Na level of 125 cannot use spinal anesthesia due to Xarelto last evening prior to fall will get patient a diet and recheck sodium, she is frustrated that she cannot get surgery today no chest pain, no dyspnea, no fever/chills, no cough Review of Systems Review of Systems: All systems reviewed & are unremarkable except as noted in Subjective Musculoskeletal: + joint pain (hip pain, relieved with Dilaudid) Physical Exam Constitutional: WD/WN, vitals as above Neck: trachea midline, no thyromegaly Respiratory: normal respiratory effort, lungs clear to auscultation Cardiovascular: RRR, no murmur, no edema Gastrointestinal (Abdomen): normal bowel sounds, soft, nontender, no hepatosplenomegaly Musculoskeletal: Head/Neck/Chest: normocephalic, head atraumatic and neck supple Hip: + limited ROM of hip (right hip, pain) Skin: no rashes, warm and dry Neurologic: normal touch/pain/proprioception, CN's II-XI intact bilaterally, moves all extremities and awake; no focal motor deficits Psychiatric: A+Ox3, euthymic affect Results & Data Results & Data ([facility]) Vital Signs (Past 12 Hours) Vital Signs Temp Pulse Pulse Resp BP Pulse Ox 05/04/21 08:00 37.1 C 61 18 128/72 94 05/04/21 07:47 63 05/04/21 03:35 37.3 C 65 18 135/79 94 Laboratory Results Laboratory Results - last 24 hr 05/03/21 05/03/21 05/03/21 20:15 20:15 20:15 WBC RBC Hgb Hct MCV MCH MCHC RDW Std Deviation RDW Coeff of Bettye Plt Count MPV Immature Gran % (Auto) Neut % (Auto) Lymph % (Auto) [place] % (Auto) Eos % (Auto) Baso % (Auto) Neut # (Auto) Lymph # (Auto) [place] # (Auto) Eos # (Auto) Baso # (Auto) Immature Gran # (Auto) PT INR APTT PTT Ratio Sodium Potassium Chloride Carbon Dioxide Anion Gap BUN Creatinine Est Cr Clr Drug Dosing Est GFR ( Amer) Est GFR (Non-Af Amer) BUN/Creatinine Ratio Glucose Osmolality Calcium Magnesium Total Bilirubin AST ALT Alkaline Phosphatase Total Protein Albumin Globulin Albumin/Globulin Ratio TSH Urine Color Yellow Urine Appearance Clear Urine pH 6.5 Ur Specific [place] 1.013 Urine Protein Negative Urine Glucose (UA) Negative Urine Ketones Negative Urine Blood Negative Urine Nitrite Negative Urine Bilirubin Negative Urine Urobilinogen Negative Ur Leukocyte Esterase Negative COVID-19 Eval Order Covid19 at [facility] SARS-CoV-2 (PCR) NEGATIVE Blood Type Antibody Screen 05/03/21 05/03/21 05/03/21 20:16 20:16 20:16 WBC 5.27 RBC 4.40 Hgb 13.6 Hct 38.7 MCV 88.0 MCH 30.9 MCHC 35.1 RDW Std Deviation 41.7 RDW Coeff of Bettye 12.9 Plt Count 176 MPV 9.7 Immature Gran % (Auto) 0.2 Neut % (Auto) 66.7 Lymph % (Auto) 23.1 [place] % (Auto) 8.9 Eos % (Auto) 0.9 Baso % (Auto) 0.2 Neut # (Auto) 3.51 Lymph # (Auto) 1.22 [place] # (Auto) 0.47 Eos # (Auto) 0.05 Baso # (Auto) 0.01 Immature Gran # (Auto) 0.01 PT 12.7 H INR 1.3 H APTT 35.0 H PTT Ratio 1.3 Sodium Potassium Chloride Carbon Dioxide Anion Gap BUN Creatinine Est Cr Clr Drug Dosing Est GFR ( Amer) Est GFR (Non-Af Amer) BUN/Creatinine Ratio Glucose Osmolality Calcium Magnesium Total Bilirubin AST ALT Alkaline Phosphatase Total Protein Albumin Globulin Albumin/Globulin Ratio TSH Urine Color Urine Appearance Urine pH Ur Specific [place] Urine Protein Urine Glucose (UA) Urine Ketones Urine Blood Urine Nitrite Urine Bilirubin Urine Urobilinogen Ur Leukocyte Esterase COVID-19 Eval Order SARS-CoV-2 (PCR) Blood Type AB Positive Antibody Screen NEGATIVE 05/03/21 05/04/21 05/04/21 20:16 07:46 07:46 WBC 5.28 RBC 4.11 L Hgb 12.6 Hct 35.4 L MCV 86.1 MCH 30.7 MCHC 35.6 RDW Std Deviation 40.2 RDW Coeff of Bettye 12.7 Plt Count 153 MPV 10.1 Immature Gran % (Auto) 0.0 Neut % (Auto) 62.5 Lymph % (Auto) 23.7 [place] % (Auto) 8.9 Eos % (Auto) 4.5 Baso % (Auto) 0.4 Neut # (Auto) 3.30 Lymph # (Auto) 1.25 [place] # (Auto) 0.47 Eos # (Auto) 0.24 Baso # (Auto) 0.02 Immature Gran # (Auto) 0.00 PT INR APTT PTT Ratio Sodium 127 L Potassium 4.3 Chloride 95 L Carbon Dioxide 24 Anion Gap 7.0 BUN 17 Creatinine 0.75 Est Cr Clr Drug Dosing Not Reportable Est GFR ( Amer) 87.9 Est GFR (Non-Af Amer) 75.8 BUN/Creatinine Ratio 22.7 H Glucose 109 H Osmolality 262 L Calcium 9.3 Magnesium Total Bilirubin 0.5 AST 22 ALT 22 Alkaline Phosphatase 55 Total Protein 7.5 Albumin 3.8 Globulin 3.7 Albumin/Globulin Ratio 1.0 TSH 3.750 Urine Color Urine Appearance Urine pH Ur Specific [place] Urine Protein Urine Glucose (UA) Urine Ketones Urine Blood Urine Nitrite Urine Bilirubin Urine Urobilinogen Ur Leukocyte Esterase COVID-19 Eval Order SARS-CoV-2 (PCR) Blood Type Antibody Screen 05/04/21 07:46 WBC RBC Hgb Hct MCV MCH MCHC RDW Std Deviation RDW Coeff of Bettye Plt Count MPV Immature Gran % (Auto) Neut % (Auto) Lymph % (Auto) [place] % (Auto) Eos % (Auto) Baso % (Auto) Neut # (Auto) Lymph # (Auto) [place] # (Auto) Eos # (Auto) Baso # (Auto) Immature Gran # (Auto) PT INR APTT PTT Ratio Sodium 125 L Potassium 3.6 D Chloride 96 L Carbon Dioxide 23 Anion Gap 7.0 BUN 9 D Creatinine 0.66 Est Cr Clr Drug Dosing 62.2 Est GFR ( Amer) 97.4 Est GFR (Non-Af Amer) 84.0 BUN/Creatinine Ratio 13.4 Glucose 106 H Osmolality Calcium 8.6 Magnesium 1.9 Total Bilirubin AST ALT Alkaline Phosphatase Total Protein Albumin Globulin Albumin/Globulin Ratio TSH Urine Color Urine Appearance Urine pH Ur Specific [place] Urine Protein Urine Glucose (UA) Urine Ketones Urine Blood Urine Nitrite Urine Bilirubin Urine Urobilinogen Ur Leukocyte Esterase COVID-19 Eval Order SARS-CoV-2 (PCR) Blood Type Antibody Screen Medications Administered Current Inpatient Medications Acetaminophen (Acetaminophen 325 Mg Tab) 650 mg PO Q6H PRN PRN Reason: Pain & Pre PT Stop: 06/03/21 00:54 Last Admin: 05/04/21 06:05 Dose: 650 mg Documented by: Bisacodyl (Bisacodyl 10 Mg Supp) 10 mg [place] DAILY PRN PRN Reason: Constipation Stop: 06/03/21 00:54 Escitalopram Oxalate (Escitalopram Oxalate 10 Mg Tab) 2.5 mg PO QAM [facility] Stop: 06/04/21 08:59 Escitalopram Oxalate (Escitalopram Oxalate 10 Mg Tab) 5 mg PO QPM [facility] Stop: 06/04/21 20:59 Hydromorphone HCl (Hydromorphone Inj 0.5 Mg/0.5 Ml Syr) 0.25 mg IV Q4 PRN PRN Reason: Pain (6,7,8,9,10) Stop: 05/18/21 00:54 Potassium Chloride/Sodium Chloride (Normal Saline W/20 Meq Kcl) 20 meq in 1,000 mls @ 100 mls/hr IV .Q10H [facility] Stop: 06/03/21 13:29 Levothyroxine Sodium (Levothyroxine Sodium 50 Mcg Tablet) 50 mcg PO DAILYBB [facility] Stop: 06/03/21 06:29 Last Admin: 05/04/21 06:05 Dose: 50 mcg Documented by: Magnesium Hydroxide (Magnesium Hydroxide Susp 30 Ml Udc) 30 ml PO DAILY PRN PRN Reason: Constipation Stop: 06/03/21 00:54 Metoprolol Succinate (Metoprolol Succ 25mg Ext Rel Tab) 25 mg PO DAILY [facility] Stop: 06/03/21 08:59 Last Admin: 05/04/21 09:20 Dose: 25 mg Documented by: Naloxone HCl (Naloxone Hcl 0.4 Mg/1 Ml Vial/Carp) 0.1 mg IV UD PRN PRN Reason: Opiate Overdose Stop: 06/03/21 00:54 Ondansetron HCl (Ondansetron Inj 2 Mg/Ml 2 Ml Vial) 4 mg IV Q6H PRN PRN Reason: Nausea And Vomiting Stop: 06/03/21 00:54 Oxycodone HCl (Oxycodone Hcl Ir 5 Mg Tab (Immediate Release)) 5 mg PO Q4H PRN PRN Reason: MODERATE Pain (4,5,6) & Pre PT Stop: 05/18/21 00:54 Potassium Chloride (Potassium Chloride 10 Meq Tabcr) 10 meq PO DAILY [facility] Stop: 06/03/21 08:59 Last Admin: 05/04/21 09:19 Dose: 10 meq Documented by: Senna/Docusate Sodium (Docusate Sodium/Senna 50/8.6mg Tab) 2 tab PO HS [facility] Stop: 06/03/21 00:54 Last Admin: 05/04/21 01:52 Dose: 2 tab Documented by: PG Care Time/CCT Total # of Minutes Spent Total Time Spent with Patient: Total time spent is greater than 50% in coordination of care (as documented) at patient's floor/unit and/or counseling patient: Coding Level of Care Code 18861 Subseq Hosp Care Lvl 2 Diagnoses Closed femur fracture S72.90XA Anticoagulant long-term use Z79.01 Paroxysmal atrial fibrillation I48.0 Hypomagnesemia E83.42 Hypothyroidism E03.9 Mitral regurgitation I34.0 Hyponatremia E87.1
[2021-05-04] MEDS: NSS + 20MEQ KCL 20 MEQ/1,000 ML BAG IV SCH (14:22)
[2021-05-04 15:09] LABS: Calcium 8.2 mg/dl (8.5-10.1); Creatinine Clr Calc Pharmacy 63.1 ml/min; Est GFR (African American) 97.9 ml/min; Est GFR (Non-African American) 84.4 ml/min; Potassium 3.8 mmol/L (3.5-5.1)
--- NOTE | 2021-05-04 16:23 | Electrocardiogram Report ---
Test Reason : Blood Pressure : / mmHG Vent. Rate : 072 BPM Atrial Rate : 072 BPM P-R Int : 200 ms QRS Dur : 096 ms QT Int : 406 ms P-R-T Axes : 000 -65 033 degrees QTc Int : 444 ms Poor data quality, interpretation may be adversely affected Sinus rhythm with Premature atrial complexes Incomplete right bundle branch block Left anterior fascicular block Nonspecific T wave abnormality Abnormal ECG When compared with ECG of 28-SEP-2014 13:11, Nonspecific T wave abnormality, worse in Anterolateral leads Confirmed by Magen Larson ([id number]) on 05/04/2021 4:23:46 PM Referred By: Alexander Tucker Confirmed By:Magen Larson
[2021-05-05] MEDS: ACETAMINOPHEN 325 MG TAB PO PRN (00:03)
[2021-05-05] MEDS: NSS + 20MEQ KCL 20 MEQ/1,000 ML BAG IV SCH ×2 (00:04→09:55)
[2021-05-05] MEDS: LEVOTHYROXINE SODIUM 50 MCG TABLET PO SCH (05:36)
[2021-05-05 06:05] LABS: Basophils # (auto) 0.02 K/uL (0-0.2); Basophils % (auto) 0.4 %; Eosinophils # (auto) 0.37 K/uL (0-0.5); Hemoglobin 13.3 g/dL (12.0-16.0); Lymphocytes # (auto) 1.28 K/uL (1.2-3.4); Lymphocytes % (auto) 27.8 %; Mean Corpuscular Hemoglobin 30.7 pg (25-34); Mean Corpuscular Volume 87.8 fL (80-100); Mean Platelet Volume 9.9 fL (7.4-10.4); Monocytes # (auto) 0.43 K/uL (0.11-0.59); Monocytes % (auto) 9.3 %; Neutrophils % (auto) 54.5 %; Platelet Count 146 K/uL (130-400); RDW Coefficient of Variation 12.8 % (11.5-14.5); RDW Standard Deviation 41.3 fL (36.4-46.3); Red Blood Count 4.33 M/uL (4.2-5.4)
[2021-05-05 06:30] LABS: BUN Creatinine Ratio 10.5 (10-20); Calcium 8.2 mg/dl (8.5-10.1); Creatinine Clr Calc Pharmacy 65.2 ml/min; Est GFR (African American) 98.9 ml/min; Est GFR (Non-African American) 85.3 ml/min; Magnesium 2.2 mg/dl (1.8-2.4); Potassium 4.3 mmol/L (3.5-5.1)
[2021-05-05] MEDS: METOPROLOL SUCC 25MG EXT REL TAB PO SCH ×2 (08:42→20:17)
[2021-05-05] MEDS: ESCITALOPRAM OXALATE 10 MG TAB PO SCH ×2 (08:43→20:19)
[2021-05-05] MEDS: POTASSIUM CHLORIDE 10 MEQ TABCR PO SCH (08:52)
--- NOTE | 2021-05-05 09:07 | Orthopedic Progress Note ---
Date of Service May 05, 2021 Assessment & Plan (1) Closed fracture of neck of right femur: She is npo. Sodium level improved today. We will plan on taking her to the OR today for cannulated screw fixation vs hemiarthroplasty of the right hip. Procedure was explained including risks, alternatives, benefits. Consent obtained. She did ask about possibly just doing the hemiarthroplasty but is willing to defer to Dr. Koch. Subjective .81 y/o female with right femoral neck fracture. Pain is controlled. No other complaints at this time. Review of Systems All systems reviewed & are unremarkable except as noted in HPI & below. Physical Exam .alert and oriented. NAD. Right leg: well aligned. moves her ankle and foot appropriately. Results & Data Results & Data Laboratory Results . Diagnostic Findings . PG Care Time/CCT Total # of Minutes Spent Total Time Spent with Patient: Total time spent is greater than 50% in coordination of care (as documented) at patient's floor/unit and/or counseling patient: Coding Level of Care Code 72537 Post Operative Follow-Up Diagnoses Closed fracture of neck of right femur S72.001A Encounter type: initial encounter (1) Closed fracture of neck of right femur Encounter type: initial encounter Qualified Code(s): S72.001A - Fracture of unspecified part of neck of right femur, initial encounter for closed fracture
--- NOTE | 2021-05-05 09:51 | Hospitalist Progress Note ---
Date of Service May 05, 2021 Assessment & Plan (1) Closed femur fracture: Plan: Right impacted sub-capital right femoral neck fracture without dislocation - Pain control tiered approach- Tylenol, Oxy IR, Hydromorphone 0.25mg IV - Has had Anesthesia before without any difficulties reported - NO hematoma, NV/CV status intact, Hb stable - Last dose of Xarelto was 05/03 at ~1700 - SCD's, GARRY to left leg - Orthopaedics consulted, plan for pinning right hip today with Dr. Koch cannot get spinal anesthesia due to Xarelto dosing Na is up to 131, stable for OR (2) Hyponatremia: Plan: Serum osmo 260's, urine osm 380 - she is normally on the lower side, 130-134 - Spec grav- 1.0103 - asymptomatic - Likely slight hypovolemia with low chloride as well- ? related to lexapro - TSH normal - Glucose normal could be mild transient SIADH from pain from fracture Na up to 131 today, liberalize sodium in diet, can stop NSS after surgery (3) Anticoagulant long-term use: Plan: For PAF - continue to hold Xarelto until okay to resume from ortho (4) Paroxysmal atrial fibrillation: Plan: Currently in NSR - can go to med/surg tomorrow - Continue Metoprolol (5) Hypomagnesemia: Plan: Hold oral mag - can replete with IV mag if needed (6) Hypothyroidism: Plan: Continue Synthroid at 50mcg TSH in am (7) Mitral regurgitation: Plan: asymptomatic grade I systolic murmur - Continue BB Admission and Anticipated Discharge Date Admission Date: May 03, 2021 Subjective patient feels ready for surgery, pain is controlled Na up to 131 today, her baseline d/w ortho, take for pinning, might need hemiarthroplasty breathing well, no chest pain, no fever/chills NPO since midnight Hb is stable, WBC normal Review of Systems Review of Systems: All systems reviewed & are unremarkable except as noted in Subjective Musculoskeletal: + joint pain (right hip) Physical Exam Constitutional: WD/WN, vitals as above Neck: trachea midline, no thyromegaly Respiratory: normal respiratory effort, lungs clear to auscultation Cardiovascular: RRR, no murmur, no edema Gastrointestinal (Abdomen): normal bowel sounds, soft, nontender, no hepatosplenomegaly Musculoskeletal: Head/Neck/Chest: normocephalic, head atraumatic and neck supple Hip: + limited ROM of hip (right hip, pain) Skin: no rashes, warm and dry Neurologic: normal touch/pain/proprioception, CN's II-XI intact bilaterally, moves all extremities and awake; no focal motor deficits Psychiatric: A+Ox3, euthymic affect Results & Data Results & Data ([facility]) Vital Signs (Past 12 Hours) Vital Signs Temp Pulse Pulse Resp BP Pulse Ox 05/05/21 07:47 36.8 C 70 17 138/82 96 05/05/21 07:22 62 05/05/21 03:43 36.7 C 57 L 18 111/66 91 05/04/21 23:12 36.9 C 65 18 143/79 H 92 05/04/21 22:19 59 L Laboratory Results Laboratory Results - last 24 hr 05/04/21 05/04/21 05/05/21 13:30 13:40 05:25 WBC 4.60 L RBC 4.33 Hgb 13.3 Hct 38.0 MCV 87.8 MCH 30.7 MCHC 35.0 RDW Std Deviation 41.3 RDW Coeff of Bettye 12.8 Plt Count 146 MPV 9.9 Immature Gran % (Auto) 0.0 Neut % (Auto) 54.5 Lymph % (Auto) 27.8 [place] % (Auto) 9.3 Eos % (Auto) 8.0 Baso % (Auto) 0.4 Neut # (Auto) 2.50 Lymph # (Auto) 1.28 [place] # (Auto) 0.43 Eos # (Auto) 0.37 Baso # (Auto) 0.02 Immature Gran # (Auto) 0.00 Sodium 126 L Potassium 3.8 Chloride 97 L Carbon Dioxide 22 Anion Gap 7.0 BUN 8 Creatinine 0.65 Est Cr Clr Drug Dosing 63.1 Est GFR ( Amer) 97.9 Est GFR (Non-Af Amer) 84.4 BUN/Creatinine Ratio 13.0 Glucose 98 Calcium 8.2 L Magnesium Urine Osmolality 380 L 05/05/21 05:25 WBC RBC Hgb Hct MCV MCH MCHC RDW Std Deviation RDW Coeff of Bettye Plt Count MPV Immature Gran % (Auto) Neut % (Auto) Lymph % (Auto) [place] % (Auto) Eos % (Auto) Baso % (Auto) Neut # (Auto) Lymph # (Auto) [place] # (Auto) Eos # (Auto) Baso # (Auto) Immature Gran # (Auto) Sodium 131 L Potassium 4.3 Chloride 106 Carbon Dioxide 21 Anion Gap 4.0 BUN 7 Creatinine 0.63 Est Cr Clr Drug Dosing 65.2 Est GFR ( Amer) 98.9 Est GFR (Non-Af Amer) 85.3 BUN/Creatinine Ratio 10.5 Glucose 86 Calcium 8.2 L Magnesium 2.2 Urine Osmolality Medications Administered Current Inpatient Medications Acetaminophen (Acetaminophen 325 Mg Tab) 650 mg PO Q6H PRN PRN Reason: Pain & Pre PT Stop: 06/03/21 00:54 Last Admin: 05/05/21 00:03 Dose: 650 mg Documented by: Bisacodyl (Bisacodyl 10 Mg Supp) 10 mg [place] DAILY PRN PRN Reason: Constipation Stop: 06/03/21 00:54 Escitalopram Oxalate (Escitalopram Oxalate 10 Mg Tab) 2.5 mg PO QAM [facility] Stop: 06/04/21 08:59 Last Admin: 05/05/21 08:43 Dose: 2.5 mg Documented by: Escitalopram Oxalate (Escitalopram Oxalate 10 Mg Tab) 5 mg PO QPM [facility] Stop: 06/04/21 20:59 Hydromorphone HCl (Hydromorphone Inj 0.5 Mg/0.5 Ml Syr) 0.25 mg IV Q4 PRN PRN Reason: Pain (6,7,8,9,10) Stop: 05/18/21 00:54 Potassium Chloride/Sodium Chloride (Normal Saline W/20 Meq Kcl) 20 meq in 1,000 mls @ 100 mls/hr IV .Q10H [facility] Stop: 06/03/21 13:29 Last Infusion: 05/05/21 08:53 Dose: 100 mls/hr Documented by: Levothyroxine Sodium (Levothyroxine Sodium 50 Mcg Tablet) 50 mcg PO DAILYBB [facility] Stop: 06/03/21 06:29 Last Admin: 05/05/21 05:36 Dose: 50 mcg Documented by: Magnesium Hydroxide (Magnesium Hydroxide Susp 30 Ml Udc) 30 ml PO DAILY PRN PRN Reason: Constipation Stop: 06/03/21 00:54 Metoprolol Succinate (Metoprolol Succ 25mg Ext Rel Tab) 25 mg PO DAILY [facility] Stop: 06/03/21 08:59 Last Admin: 05/05/21 08:42 Dose: 25 mg Documented by: Naloxone HCl (Naloxone Hcl 0.4 Mg/1 Ml Vial/Carp) 0.1 mg IV UD PRN PRN Reason: Opiate Overdose Stop: 06/03/21 00:54 Ondansetron HCl (Ondansetron Inj 2 Mg/Ml 2 Ml Vial) 4 mg IV Q6H PRN PRN Reason: Nausea And Vomiting Stop: 06/03/21 00:54 Oxycodone HCl (Oxycodone Hcl Ir 5 Mg Tab (Immediate Release)) 5 mg PO Q4H PRN PRN Reason: MODERATE Pain (4,5,6) & Pre PT Stop: 05/18/21 00:54 Potassium Chloride (Potassium Chloride 10 Meq Tabcr) 10 meq PO DAILY [facility] Stop: 06/03/21 08:59 Last Admin: 05/05/21 08:52 Dose: 10 meq Documented by: Senna/Docusate Sodium (Docusate Sodium/Senna 50/8.6mg Tab) 2 tab PO HS [facility] Stop: 06/03/21 00:54 Last Admin: 05/04/21 20:13 Dose: 2 tab Documented by: PG Care Time/CCT Total # of Minutes Spent Total Time Spent with Patient: Total time spent is greater than 50% in coordination of care (as documented) at patient's floor/unit and/or counseling patient: Coding Level of Care Code 71392 Subseq Hosp Care Lvl 2 Diagnoses Closed femur fracture S72.90XA Anticoagulant long-term use Z79.01 Paroxysmal atrial fibrillation I48.0 Hypomagnesemia E83.42 Hypothyroidism E03.9 Mitral regurgitation I34.0 Hyponatremia E87.1
[2021-05-05] MEDS ORDERED: fentaNYL citrate 100 MCG/2 ML VIAL ONE ×2 (11:12→14:52)
[2021-05-05] MEDS ORDERED: LIDOCAINE 2% 2 ML VIAL/AMP(20MG/ML) INFIL ONE (11:12)
[2021-05-05] MEDS ORDERED: PROPOFOL IV EMULSION 10 MG/ML 20 ML VIAL IV ONE (11:12)
[2021-05-05] MEDS ORDERED: ePHEDrine sulfate 50 MG/ML AMP IV PRN (12:28)
[2021-05-05] MEDS ORDERED: HYDROmorphone INJ 1 MG/ML SYRINGE IV PRN (12:28)
[2021-05-05] MEDS ORDERED: ONDANSETRON INJ 2 MG/ML 2 ML VIAL IV PRN (12:28)
[2021-05-05] MEDS ORDERED: ATROPINE SULFATE 0.1 MG/ML 10ML SYR IV PRN (12:28)
[2021-05-05] MEDS ORDERED: fentaNYL citrate 100 MCG/2 ML VIAL IV PRN (12:28)
[2021-05-05] MEDS ORDERED: ONDANSETRON INJ 2 MG/ML 2 ML VIAL ONE (13:07)
[2021-05-05] MEDS ORDERED: ROCURONIUM BROMIDE 10 MG/ML 5 ML VIAL IV ONE (13:07)
[2021-05-05] MEDS ORDERED: EPINEPHrine INJ 1 MG/ML AMP ONE (13:34)
[2021-05-05] MEDS ORDERED: BUPIVACAINE 0.5 % 5 MG/1 ML MPF 30ML VIAL ONE (13:35)
[2021-05-05] MEDS ORDERED: ceFAZolin 1000MG 1,000 MG/7.5 ML SYR IV ONE (14:10)
[2021-05-05] MEDS ORDERED: DEXAMETHASONE SOD INJ 4 MG/ML VIAL ONE (14:38)
[2021-05-05] MEDS ORDERED: ePHEDrine sulfate 50 MG/ML AMP ONE (14:38)
[2021-05-05] MEDS ORDERED: NEOSTIGMINE METHYLSULFATE 1 MG/ML 10ML VIAL ONE (15:05)
[2021-05-05] MEDS ORDERED: GLYCOPYRROLATE 0.2 MG/ML VIAL ONE (15:05)
--- NOTE | 2021-05-05 15:36 | Fluoroscopy Report ---
FL hip RT 2-3V CLINICAL HISTORY: RT PERCUTANEOUS PINNING COMPARISON STUDY: None. Correlation is made with radiograph of the right hip performed on May 03, 2021. FLUOROSCOPY TIME: 50 seconds. NUMBER OF FLUOROSCOPIC IMAGES: 2 FINDINGS: Fluoroscopic intraoperative images are presented for review shows metallic screws within proximal ri ght femur and cortical irregularity of the right femoral head likely representing fracture which was also seen on recent radiograph of the right hip joint. IMPRESSION: As above. ACT 112: Negative or not required by law. The above report was generated using voice recognition software. It may contain grammatical, syntax o r spelling errors. Electronically signed by: Steff Dukes DO 05/05/2021 3:34 PM
--- NOTE | 2021-05-05 15:38 | Operative Report ---
Post Operative Report Pre & Post Diagnosis Operation Date: 05/04/21 11:30 <No data on this case meets the specified criteria> Operation Date: 05/05/21 13:00 Pre-Op Diagnosis: Closed fracture of neck of right femur Post-Op Diagnosis: Closed fracture of neck of right femur I identified the patient and participated in the time-out.: Yes Procedure Operation Date: 05/04/21 11:30 <No data on this case meets the specified criteria> Operation Date: 05/05/21 13:00 Actual Procedures p Right Hip Percutaneous Pinning(Right) - Dioni Koch MD Surgeon Dioni Koch MD Ball Rolling Machine Operator LEONARD Rosario Estimated Blood Loss 20 Findings Consistent with Post-Op Diagnosis Fluids 550 cc Specimens None Anesthesia Type General Complications none Disposition Accompanied Patient To Recovery: No Indications Patient is a 81-year-old very active female who sustained a fall while hiking. She acute onset of pain and was unable to ambulate. Brought to emergency room where x-rays showed a valgus impacted femoral neck fracture. She is admitted to the medicine service and medically optimized. As she is on Xarelto and she was hyponatremic initially so she had to be corrected. It took about a day to do that. She is now indicated for surgical fixation. No pre-existing hip pain. Description of Procedure Operative implants consist of: 1 Synthes 7.3 cannulated screw with 90 mm length and short thread length. 2. Synthes 6.5 mm cannulated screw, 85 mm in length, long thread length, with a washer. 3. Synthes 90 mm cannulated screw, 6.5 diameter, long thread length, with a washer. The patient was taken to the operating, identified, placed on the operating table supine position but all contractors were properly padded. IV antibiotics tried by anesthesia team. General anesthetic was implemented as the patient's been on Xarelto. Patient then placed in the fracture table. The right leg was placed in boot traction the left leg was placed in a well leg funk. Were applied some longitudinal traction to the right leg and point of the knee capsule was up to the ceiling. X-ray was brought in and the fracture was valgus impacted end up otherwise well aligned. We elect to proceed with screw fixation. The right hip was scrubbed with Hibiclens and then prepped with ChloraPrep and draped in usual sterile fashion. A 4 cm incision was made in the lateral aspect of the thigh. Sharp dissection was got through subcutaneous tissue down to level the IT band. The IT band was incised longitudinally. The vastus lateralis was retracted anteriorly. 3 guidewires were then placed in an inverted triangle position in the femoral neck. This is verified fluoroscopically. I placed a 7.3 short threaded cannulated screw over the inferior guidewire into 6.5 cancellous screws with long thread length and washers over the 2 superior guidewires. These were advanced. The guidewire was then removed. The x-rays were obtained and the screw length was optimal. Some final pictures were obtained. Attention then drawn toward closing. The wound was irrigated with extensive normal saline. I injected locally with 30 cc of half percent [place] with epinephrine. The IT band was then closed with #1 Vicryl suture running fashion for subcutaneous tissues then closed with 2 layers the deep layer #1 Vicryl suture and subcutaneous tissues with a 2-0 Dexon suture in a buried interrupted fashion. Skin was then closed with skin jeannette. The leg was then cleaned and dried a sterile dressing was Xeroform, 4 x 4's, foam tape dressing was applied. The patient was then taken off the fracture table and transported to the recovery room after being brought out of general anesthesia. Patient tolerated procedure well and no complications. Wiliam Rosario, my physician assistant education director, was present for the entire procedure. His assistance was required for proper patient positioning, prepping and draping, surgical exposure, placement of the implants, closure of the wound and placement of sterile bandage. I attest to the content of the Intraoperative Record and any orders documented therein. Any exceptions are noted below.
--- NOTE | 2021-05-05 16:25 | Anesthesiology Progress Note ---
Date of Service May 05, 2021 Anesthesia Post Procedure Vital Signs Vital Signs: Temp Pulse Pulse Pulse Resp BP BP 05/05/21 16:10 87 20 147/80 H 05/05/21 16:00 36.9 C 87 18 148/87 H 05/05/21 15:50 90 18 155/78 H 05/05/21 15:40 88 18 138/93 05/05/21 15:32 36.4 C L 95 H 14 169/108 H 05/05/21 12:40 38 C H 78 16 158/86 H 05/05/21 07:47 36.8 C 70 17 138/82 05/05/21 07:22 62 05/05/21 03:43 36.7 C 57 L 18 111/66 05/04/21 23:12 36.9 C 65 18 143/79 H 05/04/21 22:19 59 L 05/04/21 19:48 36.3 C L 61 18 129/70 Pulse Ox 05/05/21 16:10 95 05/05/21 16:00 98 05/05/21 15:50 100 05/05/21 15:40 100 05/05/21 15:32 100 05/05/21 12:40 96 05/05/21 07:47 96 05/05/21 07:22 05/05/21 03:43 91 05/04/21 23:12 92 05/04/21 22:19 05/04/21 19:48 93 Pain Intensity Right Leg: Pain Intensity: 5 Right Hip: Pain Intensity: 4 Transfer of Care Handoff Completed per policy Notes Mental Status: alert / awake / arousable and participated in evaluation Patient Amnestic to Procedure: Yes Nausea / Vomiting: adequately controlled Pain: adequately controlled Airway Patency, RR, SpO2: stable & adequate BP & HR: stable & adequate Hydration State: stable & adequate Anesthetic Complications: no major complications apparent and Pt Satisfied with anesthetic care
[2021-05-05] MEDS ORDERED: NALOXONE HCL 0.4 MG/1 ML VIAL/CARP IV PRN (16:26)
[2021-05-05] MEDS: SODIUM CHLORIDE 0.9% 1000ML 1,000 ML IV SCH (17:37)
[2021-05-05] MEDS ORDERED: Nursing to Pharmacy Communication SCH (18:00)
[2021-05-05] MEDS: DOCUSATE SODIUM/SENNA 50/8.6MG TAB PO SCH (20:20)
[2021-05-05] MEDS: HYDROmorphone INJ 0.5 MG/0.5 ML SYR IV PRN (22:39)
[2021-05-06] MEDS: SODIUM CHLORIDE 0.9% 1000ML 1,000 ML IV SCH (03:23)
[2021-05-06] MEDS: LEVOTHYROXINE SODIUM 50 MCG TABLET PO SCH (05:43)
[2021-05-06] MEDS: ACETAMINOPHEN 500 MG TAB PO PRN ×3 (05:43→16:13)
[2021-05-06 07:42] LABS: Basophils # (auto) 0.01 K/uL (0-0.2); Basophils % (auto) 0.2 %; Eosinophils # (auto) 0.01 K/uL (0-0.5); Eosinophils % (auto) 0.2 %; Hematocrit (blood only) 33.7 % (37-47); Hemoglobin 11.6 g/dL (12.0-16.0); Immature Granulocytes # (auto) 0.01 K/uL (0.00-0.02); Immature Granulocytes % (auto) 0.2 %; Lymphocytes # (auto) 0.89 K/uL (1.2-3.4); Lymphocytes % (auto) 15.6 %; Mean Corpuscular Hemoglobin 30.4 pg (25-34); Mean Corpuscular Hgb Conc 34.4 g/dL (32-36); Mean Corpuscular Volume 88.5 fL (80-100); Mean Platelet Volume 9.9 fL (7.4-10.4); Monocytes # (auto) 0.63 K/uL (0.11-0.59); Neutrophils # (auto) 4.16 K/uL (1.4-6.5); Neutrophils % (auto) 72.8 %; Platelet Count 140 K/uL (130-400); RDW Coefficient of Variation 12.9 % (11.5-14.5); RDW Standard Deviation 41.9 fL (36.4-46.3); Red Blood Count 3.81 M/uL (4.2-5.4); White Blood Count 5.71 K/uL (4.8-10.8)
[2021-05-06 08:06] LABS: BUN Creatinine Ratio 13.9 (10-20); Calcium 8.4 mg/dl (8.5-10.1); Est GFR (African American) 102.2 ml/min; Est GFR (Non-African American) 88.2 ml/min; Magnesium 1.8 mg/dl (1.8-2.4); Potassium 4.2 mmol/L (3.5-5.1)
[2021-05-06] MEDS: METOPROLOL SUCC 25MG EXT REL TAB PO SCH ×2 (08:20→20:18)
[2021-05-06] MEDS: ESCITALOPRAM OXALATE 10 MG TAB PO SCH ×3 (08:20→20:33)
[2021-05-06] MEDS: POTASSIUM CHLORIDE 10 MEQ TABCR PO SCH (08:23)
[2021-05-06] MEDS: RIVAROXABAN 10 MG TABLET PO SCH (11:52)
--- NOTE | 2021-05-06 13:00 | Hospitalist Progress Note ---
Date of Service May 06, 2021 Assessment & Plan (1) Closed femur fracture: Plan: Right impacted sub-capital right femoral neck fracture without dislocation - Pain control tiered approach- Tylenol, Oxy IR, Hydromorphone 0.25mg IV - Orthopaedics consulted, s/p pinning right hip with Dr. Koch on 05/05 Na is 130 today, Hb is 11.6 pain is controlled had some orthostatic changes with standing, try therapy again later today (2) Orthostatic dizziness: Plan: occurred this morning, first time she stood up in two days encourage PO intake, liberalize salt in diet Hb is 11.6, not low enough to cause symptoms BP is stable when laying down, tolerating Toprol 25mg BID try getting up again today if this continues to be an issue can try NaCl tablets, [place] (3) Hyponatremia: Plan: Serum osmo 260's, urine osm 380 - she is normally on the lower side, 130-134 - Spec grav- 1.0103 - asymptomatic - Likely slight hypovolemia with low chloride as well- ? related to lexapro, has been on that for a few years - TSH normal - Glucose normal could be mild transient SIADH from pain from fracture Na stable at 130 today, liberalize sodium in diet, can stop NSS after surgery (4) Anticoagulant long-term use: Plan: For PAF - Xarelto resumed (5) Paroxysmal atrial fibrillation: Plan: Currently in NSR - can go to med/surg tomorrow - Continue Metoprolol (6) Hypomagnesemia: Plan: Hold oral mag - can replete with IV mag if needed (7) Hypothyroidism: Plan: Continue Synthroid at 50mcg (8) Mitral regurgitation: Plan: asymptomatic grade I systolic murmur - Continue BB Admission and Anticipated Discharge Date Admission Date: May 03, 2021 Subjective patient had some orthostatic changes today when she tried to stand with therapy, first time she has been up in two days got light headed and dizzy and pale she normally does not have issues with this, but admits to vertigo in the past that lasted for nearly a year, this was 5 years ago reviewed labs, Na 130, Cr normal, Hb is 11.6, < 4.2, Mag 1.8 reviewed op report, she had IM pinning by Dr. Koch discussed trying therapy again this afternoon, told her to drink fluids and liberalize sodium in diet Review of Systems Review of Systems: All systems reviewed & are unremarkable except as noted in Subjective Cardiovascular: + lightheadedness Musculoskeletal: + joint pain (right hip) Neurologic: + unsteadiness Physical Exam Constitutional: WD/WN, vitals as above Neck: trachea midline, no thyromegaly Respiratory: normal respiratory effort, lungs clear to auscultation Cardiovascular: RRR, no murmur, no edema Gastrointestinal (Abdomen): normal bowel sounds, soft, nontender, no hepatosplenomegaly Musculoskeletal: Head/Neck/Chest: normocephalic, head atraumatic and neck supple Hip: + limited ROM of hip (right hip, pain) Skin: no rashes, warm and dry Neurologic: normal touch/pain/proprioception, CN's II-XI intact bilaterally, moves all extremities and awake; no focal motor deficits Psychiatric: A+Ox3, euthymic affect Results & Data Results & Data ([facility]) Vital Signs (Past 12 Hours) Vital Signs Temp Pulse Pulse Resp BP Pulse Ox 05/06/21 11:00 36.4 C L 69 16 108/63 97 05/06/21 07:09 66 05/06/21 07:00 36.7 C 67 18 129/69 95 05/06/21 03:01 37 C 89 16 115/71 95 Laboratory Results Laboratory Results - last 24 hr 05/06/21 05/06/21 07:21 07:21 WBC 5.71 RBC 3.81 L Hgb 11.6 L Hct 33.7 L MCV 88.5 MCH 30.4 MCHC 34.4 RDW Std Deviation 41.9 RDW Coeff of Bettye 12.9 Plt Count 140 MPV 9.9 Immature Gran % (Auto) 0.2 Neut % (Auto) 72.8 Lymph % (Auto) 15.6 Grundy % (Auto) 11.0 Eos % (Auto) 0.2 Baso % (Auto) 0.2 Neut # (Auto) 4.16 Lymph # (Auto) 0.89 L Grundy # (Auto) 0.63 H Eos # (Auto) 0.01 Baso # (Auto) 0.01 Immature Gran # (Auto) 0.01 Sodium 130 L Potassium 4.2 Chloride 102 Carbon Dioxide 23 Anion Gap 6.0 BUN 8 Creatinine 0.57 L Est Cr Clr Drug Dosing 72.0 Est GFR ( Amer) 102.2 Est GFR (Non-Af Amer) 88.2 BUN/Creatinine Ratio 13.9 Glucose 104 H Calcium 8.4 L Magnesium 1.8 Medications Administered Current Inpatient Medications Acetaminophen (Acetaminophen 500 Mg Tab) 500 mg PO Q4H PRN PRN Reason: Pain Stop: 06/04/21 21:08 Last Admin: 05/06/21 11:46 Dose: 500 mg Documented by: Bisacodyl (Bisacodyl 10 Mg Supp) 10 mg PA DAILY PRN PRN Reason: Constipation Stop: 06/03/21 00:54 Escitalopram Oxalate (Escitalopram Oxalate 10 Mg Tab) 2.5 mg PO QAM [facility] Stop: 06/04/21 08:59 Last Admin: 05/06/21 08:20 Dose: 2.5 mg Documented by: Escitalopram Oxalate (Escitalopram Oxalate 10 Mg Tab) 5 mg PO QPM [facility] Stop: 06/04/21 20:59 Last Admin: 05/05/21 20:19 Dose: 5 mg Documented by: Hydromorphone HCl (Hydromorphone Inj 0.5 Mg/0.5 Ml Syr) 0.25 mg IV Q4 PRN PRN Reason: Pain (6,7,8,9,10) Stop: 05/18/21 00:54 Last Admin: 05/05/21 22:39 Dose: 0.25 mg Documented by: Levothyroxine Sodium (Levothyroxine Sodium 50 Mcg Tablet) 50 mcg PO DAILYBB [facility] Stop: 06/03/21 06:29 Last Admin: 05/06/21 05:43 Dose: 50 mcg Documented by: Magnesium Hydroxide (Magnesium Hydroxide Susp 30 Ml Udc) 30 ml PO DAILY PRN PRN Reason: Constipation Stop: 06/03/21 00:54 Metoprolol Succinate (Metoprolol Succ 25mg Ext Rel Tab) 25 mg PO BID [facility] Stop: 06/04/21 20:59 Last Admin: 05/06/21 08:20 Dose: 25 mg Documented by: Naloxone HCl (Naloxone Hcl 0.4 Mg/1 Ml Vial/Carp) 0.1 mg IV UD PRN PRN Reason: Opiate Overdose Stop: 06/03/21 00:54 Naloxone HCl (Naloxone Hcl 0.4 Mg/1 Ml Vial/Carp) 0.1 mg IV UD PRN PRN Reason: Opioid Overdose Stop: 06/04/21 16:25 Ondansetron HCl (Ondansetron Inj 2 Mg/Ml 2 Ml Vial) 4 mg IV Q6H PRN PRN Reason: Nausea And Vomiting Stop: 06/03/21 00:54 Oxycodone HCl (Oxycodone Hcl Ir 5 Mg Tab (Immediate Release)) 5 mg PO Q4H PRN PRN Reason: MODERATE Pain (4,5,6) & Pre PT Stop: 05/18/21 00:54 Potassium Chloride (Potassium Chloride 10 Meq Tabcr) 10 meq PO DAILY [facility] Stop: 06/03/21 08:59 Last Admin: 05/06/21 08:23 Dose: 10 meq Documented by: Rivaroxaban (Rivaroxaban 10 Mg Tablet) 10 mg PO DAILY [facility] Stop: 05/07/21 09:01 Last Admin: 05/06/21 11:52 Dose: 10 mg Documented by: Rivaroxaban (Rivaroxaban 20 Mg Tab) 20 mg PO DAILY [facility] Stop: 06/07/21 08:59 Senna/Docusate Sodium (Docusate Sodium/Senna 50/8.6mg Tab) 2 tab PO HS [facility] Stop: 06/03/21 00:54 Last Admin: 05/05/21 20:20 Dose: 2 tab Documented by: PG Care Time/CCT Total # of Minutes Spent Total Time Spent with Patient: Total time spent is greater than 50% in coordination of care (as documented) at patient's floor/unit and/or counseling patient: Coding Level of Care Code 32918 Subseq Hosp Care Lvl 2 Diagnoses Closed femur fracture S72.90XA Hyponatremia E87.1 Anticoagulant long-term use Z79.01 Paroxysmal atrial fibrillation I48.0 Hypomagnesemia E83.42 Hypothyroidism E03.9 Mitral regurgitation I34.0 Orthostatic dizziness R42
--- NOTE | 2021-05-06 16:00 | Progress Notes ---
DATE OF SERVICE: 05/06/2021. SUBJECTIVE: A 81-year-old white female postoperative day 1 from cannulated screw fixation of a valgu s impacted femoral neck fracture. She is doing pretty well. While completely resting, not having mu ch pain. She has been getting up and around some, but moderately painful. No other complaints. OBJECTIVE: VITAL SIGNS: Temperature 37.7. Vital signs are stable. PHYSICAL EXAMINATION: GENERAL: A pleasant, frail, elderly female. She is sitting up at her bedside chair, looks comfortab le. EXTREMITIES: Examination of the right hip and leg reveals the dressing to be clean, dry and intact. Leg lengths are equal. She can dorsiflex and plantarflex her foot appropriately. NEUROLOGIC: She is neurologically intact. LABORATORY DATA: Hemoglobin 11.6. Hematocrit 33.7. Electrolytes are stable. Sodium still a little bit low at ____. ASSESSMENT: A 81-year-old white female postoperative day 1 from cannulated screw fixation of a valgu s impacted femoral neck fracture, doing pretty well. PLAN: 1. DVT prophylaxis includes thigh-high TEDs, SCDs and back on Xarelto. We are going to put her on a prophylactic dose while in the hospital due to her recent surgery. She will start this at 24 hours postop, and upon discharge, we will increase her back to her regular dose. 2. PT/OT. She is partial weightbearing in the right leg, 50% weightbearing. 3. Pain control, doing okay with current pain regimen. 4. Medical management as per the medicine service. 5. Disposition: She is orthopedically okay for discharge any time medically stable. Any orthopedic questions can be directed to me at [phone]. Job ID: [id number]
[2021-05-06] MEDS: DOCUSATE SODIUM/SENNA 50/8.6MG TAB PO SCH (20:15)
[2021-05-06] MEDS: HYDROmorphone INJ 0.5 MG/0.5 ML SYR IV PRN (20:16)
[2021-05-07] MEDS: HYDROmorphone INJ 0.5 MG/0.5 ML SYR IV PRN ×2 (03:28→10:32)
[2021-05-07] MEDS: LEVOTHYROXINE SODIUM 50 MCG TABLET PO SCH (06:11)
--- NOTE | 2021-05-07 08:58 | Progress Notes ---
DATE OF SERVICE: 05/07/2021. SUBJECTIVE: A 81-year-old white female now postop day 2 from cannulated screw fixation of right valg us impacted femoral neck fracture. She is doing okay. Having a moderate amount of pain with motion. No real pain at rest. No new complaints. OBJECTIVE: VITAL SIGNS: Temperature 36.6. Vital signs are stable. GENERAL: Shows a pleasant, elderly, frail female. She was sitting up in bed and talking to someone on the phone when I visited her this morning. EXTREMITIES: Examination of the right hip reveals the leg to be well aligned. Dressings clean, dry and intact. Thigh is soft and supple. She can dorsiflex and plantarflex her foot appropriately. ASSESSMENT: A 81-year-old white female postop day 2 from cannulated screw fixation of valgus impacte d femoral neck fracture, doing reasonably well. PLAN: 1. DVT prophylaxis include thigh-high TEDs, SCDs, and she is back on Xarelto. She is at a prophylac tic dose currently. I would keep her on 10 mg while in the hospital and then discharge on 20 mg, whi ch is a therapeutic dose. 2. PT/OT. She is partial weightbearing right leg. 50% weightbearing for 6 weeks. 3. Medical management as per the medicine service. 4. Disposition: She is orthopedically okay for discharge any time. I need to see her back two to t hree weeks out from surgery. Any orthopedic questions can be directed to me at [phone]. Job ID: [id number]
[2021-05-07 09:02] LABS: Hematocrit (blood only) 34.5 % (37-47); Hemoglobin 11.9 g/dL (12.0-16.0); Mean Corpuscular Hemoglobin 30.2 pg (25-34); Mean Corpuscular Hgb Conc 34.5 g/dL (32-36); Mean Corpuscular Volume 87.6 fL (80-100); Mean Platelet Volume 9.8 fL (7.4-10.4); Platelet Count 166 K/uL (130-400); RDW Coefficient of Variation 13.1 % (11.5-14.5); RDW Standard Deviation 42.1 fL (36.4-46.3); Red Blood Count 3.94 M/uL (4.2-5.4); White Blood Count 5.38 K/uL (4.8-10.8)
[2021-05-07 09:20] LABS: BUN Creatinine Ratio 14.3 (10-20); Calcium 8.5 mg/dl (8.5-10.1); Creatinine Clr Calc Pharmacy 77.4 ml/min; Est GFR (African American) 104.7 ml/min; Est GFR (Non-African American) 90.3 ml/min; Potassium 3.9 mmol/L (3.5-5.1)
[2021-05-07] MEDS: RIVAROXABAN 10 MG TABLET PO SCH (09:20)
[2021-05-07] MEDS: POTASSIUM CHLORIDE 10 MEQ TABCR PO SCH (09:20)
[2021-05-07] MEDS: METOPROLOL SUCC 25MG EXT REL TAB PO SCH ×2 (09:20→21:06)
[2021-05-07] MEDS: ACETAMINOPHEN 500 MG TAB PO PRN ×2 (19:27→23:43)
[2021-05-07] MEDS: DOCUSATE SODIUM/SENNA 50/8.6MG TAB PO SCH (21:06)
[2021-05-07] MEDS: ESCITALOPRAM OXALATE 10 MG TAB PO SCH (21:06)
[2021-05-08] MEDS: ACETAMINOPHEN 500 MG TAB PO SCH ×2 (01:08→08:11)
[2021-05-08] MEDS: LEVOTHYROXINE SODIUM 50 MCG TABLET PO SCH (05:29)
[2021-05-08] MEDS: POTASSIUM CHLORIDE 10 MEQ TABCR PO SCH (08:09)
[2021-05-08] MEDS: ESCITALOPRAM OXALATE 10 MG TAB PO SCH (08:09)
[2021-05-08] MEDS: METOPROLOL SUCC 25MG EXT REL TAB PO SCH (08:12)
[2021-05-08] MEDS ORDERED: traMADol HCL 50 MG TABLET PO PRN (08:45)
[2021-05-08] MEDS ORDERED: RIVAROXABAN 20 MG TAB PO SCH (09:00)
--- NOTE | 2021-05-08 09:57 | Discharge Summary ---
Date of Service May 08, 2021 Admission HPI Per Admitting Provider 81 YOF with past medical history of: Paroxysmal Afib (on Xaralto), hypomagnesemia, PACs, Mitral Regurgitation. Patient comes to the EMD today for evaluation of her right hip. The patient was out completing a hike today where she stepped off the road onto an un-level area causing her to lose her balance and fall onto her right hip. She had immediate pain and inability to bear weight. On the way to the hospital she did implement ice and Tylenol. In the EMD the patient had Femur and Hip and pelvis x-rays performed. This revealed a subcapital right femoral neck fracture without dislocation and/or pelvic invo lvement. The patient pain is currently controlled. She will be admitted for pain control, holding of her Xarelto until evaluated by Orthopaedics, will place on telemetry to monitor for afib until surgical plan/evaluation is developed. In general this is a healthy female with minimal medical history. She reports that she walks 2 miles per day without any cardio-pulmonary problems. She is followed by Dr. Riley for cardiology her original diagnosis of Afib was in 2010. Managed with Metoprolol. Patient has been vaccinated for COVID 19 and her COVID test on admission is NEGATIVE. Revised Cardiac Risk index: 0.4 %, Johnson risk probability for perioperative [place] or Cardiac Arrest: 0.21% Principal Diagnosis Right closed femoral neck fracture Discharge Exam Constitutional WD/WN, vitals as above Neck trachea midline, no thyromegaly Respiratory normal respiratory effort, lungs clear to auscultation Cardiovascular RRR, no murmur, no edema Gastrointestinal (Abdomen) normal bowel sounds, soft, nontender, no hepatosplenomegaly Musculoskeletal Head/Neck/Chest: normocephalic, head atraumatic and neck supple Hip: + limited ROM of hip (right hip, pain) Skin no rashes, warm and dry Neurologic normal touch/pain/proprioception, CN's II-XI intact bilaterally, moves all extremities and awake; no focal motor deficits Psychiatric A+Ox3, euthymic affect Discharge Data Allergies Allergy/AdvReac Type Severity Reaction Status Date / Time codeine AdvReac Severe NAUSEA Verified 05/03/21 19:18 Consultations 05/03/21 20:06 Consult Orthopedic Surgery Routine 05/03/21 20:17 ED Decision to Admit Stat 05/04/21 00:55 Consult Anesthesiology Routine Consult Orthopedic Surgery Routine Procedures Performed Operation Date: 05/04/21 11:30 <No data on this case meets the specified criteria> Operation Date: 05/05/21 13:00 Actual Procedures p Right Hip Percutaneous Pinning(Right) - Dioni Koch MD Ordered Studies 05/05/21 13:00 FL hip RT 2-3V Routine Hospital Course (1) Closed femur fracture: Right impacted sub-capital right femoral neck fracture without dislocation - Pain control tiered approach- Tylenol, Oxy IR, Hydromorphone 0.25mg IV - Orthopaedics consulted, s/p pinning right hip with Dr. Koch on 05/05 Na is stable, Hb stable pain is controlled with Tylenol and Ultram 50% weight bearing right leg for now with therapy follow up with Dr. Koch (2) Orthostatic dizziness: occurred in morning on 05/06, first time she stood up in two days encourage PO intake, liberalize salt in diet Hb is 11.6, not low enough to cause symptoms BP is stable when laying down, tolerating Toprol 25mg BID BP stable, sodium stable (3) Hyponatremia: Serum osmo 260's, urine osm 380 - she is normally on the lower side, 130- 134 - Spec grav- 1.0103 - asymptomatic - Likely slight hypovolemia with low chloride as well- ? related to lexapro, has been on that for a few years - TSH normal - Glucose normal could be mild transient SIADH from pain from fracture Na stable at 132 continue to allow regular diet, can push salt could be from Lexapro? consider transitioning off Lexapro in the future if mood remains stable (4) Anticoagulant long-term use: For PAF - Xarelto resumed (5) Paroxysmal atrial fibrillation: Currently in NSR - can go to med/surg tomorrow - Continue Metoprolol (6) Hypomagnesemia: Hold oral mag - can replete with IV mag if needed (7) Hypothyroidism: Continue Synthroid at 50mcg (8) Mitral regurgitation: asymptomatic grade I systolic murmur - Continue BB Total Time Total Time Spent Total Time Spent (In Minutes): 32 Total Time Includes: Examination of the Patient, Discharge Planning, Medication Reconciliation and Communication With Other Providers Discharge Plan Discharge Items Patient Disposition: Transfer [facility] Reason For Visit: BROKEN RIGHT FEMUR NECK Discharge Diagnosis: Right femoral neck fracture due to mechanical fall s/p pinning Hyponatremia, chronic Activity: Per Instructions section Activity Comment: Partial Weightbearing on right leg Weightbearing: Right partial Weightbearing Comment: May Partially weightbear on right leg...50% of body weight Non-emergency contact: Primary Care Provider Call non-emergency contact if: you have any medication questions Follow-up/Referrals: Alexander Tucker [Primary Care Provider] - (one week) Dioni Koch MD [Physician] - (Orthopedic follow-up 2-3 weeks from surgery date.) Diet: Regular Addtl Attending Provider Instructions: May Partially weightbear on right leg. May remove dressing and shower, then re-apply dry dressing over incision site. Addtl Oil Operator Provider Instructions: Medications: for pain, use Tylenol 1000mg q8 as needed and if still with pain take Ultram 50mg q4 as needed note that original medication dosing was incorrect for Toprol and Lexapro so they are listed as new but this is how she was taking them prior to admission Pending Studies at Discharge: No Stand-Alone Forms: My [facility] [employer] Skilled Items Patient informed of condition?: Yes DNR: No Discharge Level of Care: Acute rehab Communicable Disease: No Discharge Prognosis: Stable Lines: None Urinary Catheter: No Medications and DC Order Prescriptions: New tramadol 50 mg Tablet 50 mg PO Q4H PRN (Reason: pain) 10 Days Qty: 30 RF: 0 escitalopram oxalate 10 mg Tablet 5 mg PO QPM Qty: 30 RF: 0 escitalopram oxalate 10 mg Tablet 2.5 mg PO QAM Qty: 30 RF: 0 metoprolol succinate 25 mg Tablet Extended Release 24 Hr 25 mg PO BID Qty: 60 RF: 0 acetaminophen [Tylenol Extra Strength] 500 mg Tablet 1,000 mg PO Q8H Qty: 60 RF: 0 Continued levothyroxine 50 mcg tablet 50 mcg PO DAILY RF: 0 magnesium oxide 400 mg magnesium capsule 400 mg PO DAILY RF: 0 potassium chloride 10 mEq tablet extended release 10 meq PO DAILY RF: 0 Xarelto 20 mg tablet 20 mg PO DAILY RF: 0 Metamucil Packet 1 packet PO DAILY RF: 0 calcium carbonate [Calcium 500] 500 mg calcium (1,250 mg) Tablet 500 mg PO DAILY RF: 0 Discontinued escitalopram oxalate [Lexapro] 5 mg tablet 7.5 mg PO DAILY RF: 0 metoprolol succinate 25 mg tablet extended release 24 hr 25 mg PO DAILY RF: 0 Discharge Orders: Discharge Order (Routine); Ordered 05/08/21 Ordered By: Daniel Paris Admission Data Admit Date/Time: 05/03/21 20:55 Attending Provider: Daniel Paris Admit Provider: Nuzhat Koch Primary Care Provider: Alexander Tucker Other Providers: Trinity Kathleen ; Jerome Gagnon ; Chon Devries ; Marshal Pimentel ; Marichuy Marmolejo ; Nai Albert ; Diane Mcnulty ; Brina Ruff ; Yonis Persaud ; Sherry Nichols ; Antwon Anguiano ; Violeta Maldonado ; Dioni Koch ; Ray Rosario ; Ricci Dumont ; Ricci Cuenca ; Chen Winkler ; Nuzhat Koch ; Joy Pena ; Teresa Prabhakar ; Esha Gunn ; Dinah Jackson ; Muna Godinez ; Jose Lorenzana ; Toi Rivera ; Neftaly Tay ; Deondre Valle ; Zoë Valle ; Ricci Maciel ; Sherry Preston ; Lincoln Schneider ; Jimi Correa ; Surya Katz ; Pavel Garcia ; Monica Jimenez ; Dave Ortiz ; Aspen Saeed ; Brina Ortiz ; Howie Pearson ; Emily Purdy ; Dane Rader ; Marce Allen ; Cecile Foy ; Emily Crouch ; Sharita Paris ; Raphael Courtney ; Nuzhat Morataya ; Wilma Salas ; Carmen Joseph ; Maggie Amezquita ; Faustino Amezquita V ; Presley Ma ; Teresa Montague ; Magnus Pepper ; Meron Garvin ; Staci Berger ; Faustino Hu ; Demarcus Jimenez ; Daniel Maya ; Kindra Shahid ; Carmen Ricks ; Dioni Bosch ; Solomon Garcia ; Emerald Torre ; Byron Whitman ; Pretty Myrick ; Rio Sanders ; Con Pal ; Byron Bauer ; Jose Tello Jr ; Laila Rain ; Byron Barnett Coding Level of Care Code D/C DAY MANAGEMENT >30 MINS Diagnoses Closed femur fracture S72.90XA Orthostatic dizziness R42 Hyponatremia E87.1 Anticoagulant long-term use Z79.01 Paroxysmal atrial fibrillation I48.0 Hypomagnesemia E83.42 Hypothyroidism E03.9 Mitral regurgitation I34.0
== END 2021-05-08 11:12 | DRG 481 ==
LOC: ED 18:42 → SUATTDRO 20:55 → 2N 20:55